=== PATIENT | male | born 1955 | race Caucasian/White ===

== ENCOUNTER 2022-09-15 16:51 | Inpatient (IN) | payer MEDICARE, OTHER, SELFPAY ==
[2022-09-15] VITALS (22 sets, daily range): BP systolic 103–136; BP diastolic 25–77; PULSE 59–84; RESP 13–22; TEMP 36.6–38.2; O2SAT 90–98; BMI 24.9
--- NOTE | ~2022-09-15 | CT_ITS ---
EXAMINATION: CT brain wo con DATE: 09/15/2022 21:48 INDICATION: Altered mental state TECHNIQUE: Computed tomography (CT) of the head was performed without intravenous contrast. The mA wa s adjusted according to patient size. Iterative reconstruction technique was employed. Exam dose: 60 5.33 mGy-cm total exam DLP. COMPARISON: None FINDINGS: Abnormal asymmetric diminished attenuation of the right parietal, temporal and occipital ar eas within the right middle cerebral artery distribution consistent with right middle cerebral artery recent/subacute infarct . No cerebral hemorrhage or other intracranial bleeding is noted. No subarachnoid or intraventricular blood or subdural or epidural hematoma is detected. There is nonspecific diminished attenuation of the cerebral white matter, likely due to chronic small vessel ischemic changes. Prominent bilateral carotid siphon internal carotid artery calcifications a nd some vertebral basilar artery calcification are noted. No intracranial mass lesion. No midline shift or mass effect effect rather than some effacement of th e cortical sulci in the distribution of the right middle cerebral artery territory infarct. Moderate central and cortical cerebral atrophy, mild cerebellar atrophy. Prominent cisterna magna. No fracture or bone destruction of the cranial vault. Included paranasal sinuses and mastoid air cell s are unremarkable. IMPRESSION: Recent or subacute right middle cerebral artery territory infarct Reviewed, dictated and finalized at [facility]. Reviewed, dictated and finalized at location A.
--- NOTE | ~2022-09-15 | XR_ITS ---
EXAMINATION: XR chest 1V portable Exam Date/Time: 09/15/2022 17:55 CDT HISTORY: SOB PAIN DISCOMFORT RECENT CVA WITH RT SIDE WEAKNESS Comparison: None available. RESULT: Lines, tubes, and devices: An electronic device projects over the left upper chest and obscures some anatomy. Lungs and pleura: Low volumes with crowding. Streaky bilateral lower lung opacities, likely scar/ate lectasis. Cardiomediastinal silhouette: Stable. Other: No acute osseous or upper abdominal finding. IMPRESSION: No acute cardiopulmonary process. Reviewed, dictated and finalized at location K.
--- NOTE | 2022-09-15 16:59 | ECG_ITS ---
Measurements Intervals [place] Rate: 82 P: 50 OR: 166 QRS: -1 QRSD: 88 T: 6 QT: 339 QTc: 398 Interpretive Statements SINUS RHYTHM POSSIBLE RIGHT VENTRICULAR CONDUCTION DELAY [RSR (QR) IN V1/V2] BORDERLINE ECG NO PREVIOUS ECG AVAILABLE FOR COMPARISON Electronically Signed On 09-16-2022 13:37:16 CDT by Nicholas Whitten M.D.
[2022-09-15 17:24] LABS: Basophils Absolute Auto 0.1 K/mm3 (0.0-0.1); Basophils Percent Auto 0.6 % (0.2-1.2); Hematocrit 47.1 % (42.0-52.0); Hemoglobin 15.2 g/dL (14.0-18.0); Immature Granulocyte Absolute 0.05 K/mm3 (0.00-0.031); Immature Granulocyte Percent A 0.5 % (0-0.5); Lymphocytes Absolute Auto 0.43 K/mm3 (0.9-3.2); Mean Corpuscular HGB Conc 32.3 g/dl (32-36); Mean Corpuscular Hemoglobin 29.2 pg (26-34); Mean Corpuscular Volume 90.6 fl (80-100); Mean Platelet Volume 9.6 fl (7.4-10.4); Monocytes Absolute Auto 0.5 K/mm3 (0.1-0.6); Monocytes Percent Auto 4.8 % (2.6-8.5); Neutrophils Absolute Auto 9.8 K/mm3 (1.3-6.7); Neutrophils Percent Auto 90.1 % (45.5-73.1); Platelet Count Result 286 k/mm3 (150-375); White Blood Count 10.8 K/mm3 (4.5-10.0)
[2022-09-15 17:36] LABS: INR 1.4; Lactic Acid Reflex 1.4 mmol/L (0.7-2.0); Prothrombin Time 16.7 Seconds (11.1-14.7)
[2022-09-15 17:37] LABS: Partial Thromboplastin Time 35.2 SECONDS (22.3-36.8)
--- NOTE | 2022-09-15 17:43 | ED.RECABL ---
HPI - Recheck/Abnormal Lab/Rx General Chief Complaint: Recheck/Abnormal Lab/Rx <Diana Reece PA-C - Last Filed: 09/15/22 22:25> Stated Complaint: increased WBC <Diana Reece PA-C - Last Filed: 09/15/22 22:25> Time Seen by Provider: 09/15/22 17:05 <Diana Reece PA-C - Last Filed: 09/15/22 22:25> History of Present Illness HPI narrative: 67-year-old male with a history of CVA in August 2022 reports with his from [facility] for evaluation of elevated WBC and positive blood cultures. Pt has been living at [facility] since his stroke. Pt;s states the patient began acting lethargic yesterday. Patient is reporting diarrhea yesterday and chills, otherwise denies other sources of infection. Denies chest pain, shortness of breath, cough or congestion, abdominal pain, urinary complaints, skin ulcerations or lesions, CP, SOB. Patient's residual stroke deficits include weakness to the left side of his body and face, with intermittent vision changes. He is able to eat and drink without a feeding tube, however has decreased PO intake recently per his . <Diana Reece PA-C - Last Filed: 09/15/22 22:25> Related Data Home Medications: Home Medications Medication Instructions Recorded Confirmed allopurinol 100 mg tablet 100 mg PO DAILY 09/15/22 09/15/22 aspirin 325 mg tablet,delayed 325 mg PO DAILY 09/15/22 09/15/22 release bisacodyl 10 mg rectal suppository 10 mg RECTAL DAILY PRN irritation 09/15/22 09/15/22 chlorhexidine gluconate 0.12 % 15 ml buccal BID 09/15/22 09/15/22 mouthwash docusate sodium 100 mg tablet 100 mg PO BID 09/15/22 09/15/22 fluoxetine 20 mg capsule 20 mg PO DAILY 09/15/22 09/15/22 hydrocortisone 1 % topical cream 1 applic topical BID PRN Itching 09/15/22 09/15/22 hydroxyzine HCl 25 mg tablet 25 mg PO QID PRN Itching 09/15/22 09/15/22 nystatin 100,000 unit/gram topical 1 applic topical BID irritation 09/15/22 09/15/22 powder sennosides 8.6 mg tablet 8.6 mg PO BID 09/15/22 09/15/22 <Diana Reece PA-C - Last Filed: 09/15/22 22:25> Allergies/Adverse Reactions: Allergies Allergy/AdvReac Type Severity Reaction Status Date / Time No Known Allergies Allergy Unverified 09/15/22 22:48 <Diana Reece PA-C - Last Filed: 09/15/22 22:25> Review of Systems Review of Systems: CONSTITUTIONAL: Denies fever, chills EYES: Denies visual changes, redness, or discharge. ENT: Denies rhinorrhea, congestion, sore throat, or otalgia. CARDIOVASCULAR: Denies chest pain, palpitations, or edema. RESPIRATORY: Denies cough or dyspnea. GASTROINTESTINAL: Denies abdominal pain, nausea, vomiting. GENITOURINARY: Denies dysuria or hematuria. SKIN: Denies rash or itching. MUSCULOSKELETAL: Denies back pain, joint pain, or myalgia. NEUROLOGIC: Denies headache, numbness, dizziness, or weakness. PSYCHIATRIC: Denies anxiety or depression. <LEISA Zurita Last Filed: 09/15/22 22:25> COUNTS INCLUDE 234 BEDS AT THE [facility] Family History Family History: Family History Other Unknown family medical history <Diana Reece PA-C - Last Filed: 09/15/22 22:25> Social History Social History: Social History Smoking status: Never smoker Alcohol intake: never Substance use: never Substance use type: does not use Lack of Transportation: No Lack of Food: Never True Current Housing: I Have Housing Concerned About Future Housing: No Difficulty Paying Gas/Electric Bills: No Difficulty Paying for Meds: No Currently Unemployed: No Education: Trade/Vocational Certificate Difficulty w/ Childcare or Family Care: No Spiritual care concerns: No <LEISA Zurita Last Filed: 09/15/22 22:25> Exam Narrative: GENERAL: Pt resting in exam bed, well appearing. In no acute distress. HEAD: Normocephalic, atraumatic. EYES: PERRLA and
[2022-09-15 17:57] LABS: Alanine Aminotransferase 47 U/L (6-50); Albumin Level 4.1 g/dL (3.5-5.1); Alkaline Phosphatase 237 U/L (38-126); Anion Gap 7 mmol/L (8-16); Aspartate Amino Transferase 57 U/L (17-59); Bilirubin,Total 1.9 mg/dL (0.2-1.3); Blood Urea Nitrogen 23 mg/dL (9-20); CRP 21.5 mg/dL (<1.0); Calcium 10.6 mg/dL (8.4-10.2); Carbon Dioxide 29 mmol/L (22-30); Chloride 101 mmol/L (98-107); Estimated CRCL calculation 66 ml/min; Estimated Glomerular Filt Rate 60; Glucose 136 mg/dL (65-110); Potassium 4.5 mmol/L (3.4-5.0); Sodium 137 mmol/L (137-145)
[2022-09-15] MEDS: SODIUM CHLORIDE 0.9% IV 3,100 ML/1,000 ML BAG 322.26 ML IV CONT (17:59)
[2022-09-15] MEDS: PIPERACILLN/TAZ 3.375GM/NS50ML 3.375 GM/50 ML BAG IVPB (18:03)
[2022-09-15 18:12] LABS: Lipase 298 U/L (23-300)
[2022-09-15 20:04] LABS: Appearance Urine Cloudy (Clear); Bacteria Urine None Seen /hpf; Bilirubin Urine 1+ (Negative); Blood Urine 3+ (Negative); Color Urine Dark Yellow (Yellow); Glucose Urine UA Negative (Negative); Ketones Urine Trace mg/dL (Negative); Leukocyte Esterase Ur 2+ LEU/UL (Negative); Need Manual Microscopic Reviewed; Nitrate Urine Negative (Negative); Protein Urine 2+ mg/dL (Negative); RBC Urine 51-100 /hpf (0-2); Specific Grav Ur 1.026 (1.001-1.035); Squamous Epithelial Cell Urine None seen /hpf (Few); WBC Urine 51-100 /hpf; pH Urine 5.5 (5.0-9.0)
[2022-09-15 20:09] LABS: Add Urine Microscopic? YES
--- NOTE | 2022-09-15 20:44 | PM.IMHP ---
H&P: HPI History of Present Illness Date/Time: 09/15/22 20:44 Chief Complaint: Altered mental status Narrative: This is a 67-year-old male with past medical history significant for recent stroke with left-sided hemiparesis he was discharged from [facility] to [facility] was sent for evaluation due to concerns for altered mental status with obtundation, a CBC showed leukocytosis. In emergency room preliminary workup was significant for urinalysis with numerous WBCs present. Most of the history has been obtained upon reviewing medical records discussion with emergency room doctor and who is sitting at bedside. Chest x-ray was reported as; RESULT: Lines, tubes, and devices:? An electronic device projects over the left upper chest and obscures some anatomy. Lungs and pleura:? Low volumes with crowding. Streaky bilateral lower lung opacities, likely scar/atelectasis. Cardiomediastinal silhouette:? Stable. Other:? No acute osseous or upper abdominal finding. ? IMPRESSION: No acute cardiopulmonary process. Review of Systems Review of Systems: ROS unobtainable: Yes unobtainable due to mental status (Lethargy, obtundation) [facility] Family History Family History Other Unknown family medical history Social History Social History Smoking status: Never smoker Alcohol intake: never Substance use: never Substance use type: does not use Lack of Transportation: No Lack of Food: Never True Current Housing: I Have Housing Concerned About Future Housing: No Difficulty Paying Gas/Electric Bills: No Difficulty Paying for Meds: No Currently Unemployed: No Education: Trade/Vocational Certificate Difficulty w/ Childcare or Family Care: No Spiritual care concerns: No Meds Home Medications and Allergies Home Medications Medication Instructions Recorded Confirmed Type allopurinol 100 mg tablet 100 mg PO DAILY 09/15/22 09/15/22 History aspirin 325 mg tablet,delayed 325 mg PO DAILY 09/15/22 09/15/22 History release bisacodyl 10 mg rectal suppository 10 mg RECTAL DAILY PRN irritation 09/15/22 09/15/22 History chlorhexidine gluconate 0.12 % 15 ml buccal BID 09/15/22 09/15/22 History mouthwash docusate sodium 100 mg tablet 100 mg PO BID 09/15/22 09/15/22 History fluoxetine 20 mg capsule 20 mg PO DAILY 09/15/22 09/15/22 History hydrocortisone 1 % topical cream 1 applic topical BID PRN Itching 09/15/22 09/15/22 History hydroxyzine HCl 25 mg tablet 25 mg PO QID PRN Itching 09/15/22 09/15/22 History nystatin 100,000 unit/gram topical 1 applic topical BID irritation 09/15/22 09/15/22 History powder sennosides 8.6 mg tablet 8.6 mg PO BID 09/15/22 09/15/22 History Allergies Allergy/AdvReac Type Severity Reaction Status Date / Time No Known Allergies Allergy Unverified 09/15/22 22:48 Vital Signs Vital Signs - 24 hr 09/15/22 16:51 09/15/22 17:00 09/15/22 18:29 Temperature 100.7 F H Pulse Rate 84 80 77 Respiratory Rate 18 18 18 Blood Pressure 136/71 116/77 117/70 Pulse Oximetry 98 98 93 Oxygen Delivery Room Air 09/15/22 18:30 09/15/22 19:41 09/15/22 18:49 Temperature Pulse Rate 78 71 74 Respiratory Rate 19 22 H 15 Blood Pressure 116/77 117/70 Pulse Oximetry 90 96 Oxygen Delivery 09/15/22 19:00 09/15/22 19:02 09/15/22 19:16 Temperature Pulse Rate 73 74 67 Respiratory Rate 14 17 16 Blood Pressure 115/25 L Pulse Oximetry Oxygen Delivery 09/15/22 19:32 09/15/22 19:33 09/15/22 19:45 Temperature Pulse Rate 75 73 70 Respiratory Rate 13 16 16 Blood Pressure 117/70 Pulse Oximetry 93 94 Oxygen Delivery 09/15/22 19:47 09/15/22 20:00 09/15/22 20:02 Temperature Pulse Rate 68 76 77 Respiratory Rate 16 17 17 Blood Pressure 115/65 103/60 Pulse Oximetry Oxygen Del
[2022-09-15 22:14] LABS: Influenza A QL RT-PCR Negative (Negative); Influenza B QL RT-PCR Negative (Negative); SARS-CoV-2 RNA PCR Negative
--- NOTE | 2022-09-15 22:38 | ADMGEN ---
This patient, Sadi Young, was admitted to Medical Room 349-01. Patient/family oriented to hospital policies and general routines including ID bracelet, bed and alarms, visiting hours, pain management, procedures, bathroom and other care routines, personal items, smoking policy, room service/diet, and visiting hours. Information on how to activate the Rapid Response Team has been discussed. Patient/Family are encouraged to report perceived risks to care and to ask questions if they do not understand what they are told or what they should do.
[2022-09-16] MEDS: SODIUM CHLORIDE 0.9% IV 1,000 ML 999 ML IV CONT (00:33)
[2022-09-16] MEDS: SODIUM CHLORIDE 0.9% IV 1,000 ML 85 ML IV CONT ×3 (01:30→20:24)
[2022-09-16] MEDS: PIPERACILLN/TAZ 3.375GM/NS50ML 3.375 GM/50 ML BAG IVPB ×4 (05:09→18:44)
[2022-09-16 05:15] LABS: Estimated CRCL calculation 77 ml/min; Estimated Glomerular Filt Rate > 60
[2022-09-16 06:00] VITALS: BP 162/66; PULSE 69; RESP 20; TEMP 36.6; O2SAT 98
[2022-09-16 08:00] VITALS: BP 120/80; PULSE 70
[2022-09-16] MEDS: FLUoxetine HCL 20 MG CAPSULE PO (10:38)
[2022-09-16] MEDS: ASPIRIN 325 MG ENTERIC TABLET PO (10:38)
[2022-09-16] MEDS: allopurinoL 100 MG TABLET PO (10:38)
[2022-09-16] MEDS: SENNOSIDES 8.6 MG TABLET PO (10:38)
[2022-09-16] MEDS: TOLNAFTATE 1% POWDER 45 GM BTL 1 APPLIC TOPICAL ×2 (10:38→20:25)
[2022-09-16] MEDS: CHLORHEXIDINE GLUCONATE 0.12% ORAL RINSE 473 ML BTL (*BKC) 15 ML SWISH/SPIT ×2 (10:40→18:44)
--- NOTE | 2022-09-16 11:47 | PM.IMPN ---
Progress Note: A&P Assessment and Plan (1) Sepsis: Qualifiers: Sepsis acute organ dysfunction status: without acute organ dysfunction Sepsis type: sepsis due to unspecified organism Qualified Code(s): A41.9 - Sepsis, unspecified organism Code(s): A41.9 - Sepsis, unspecified organism Status: Acute Assessment and Plan: As evidenced by altered mental status with obtundation lethargy and confusion Elevated bilirubin Started on broad-spectrum antibiotics Early goal-directed therapy ongoing (2) Urinary tract infection: Qualifiers: Hematuria presence: with hematuria Urinary tract infection type: acute cystitis Qualified Code(s): N30.01 - Acute cystitis with hematuria Code(s): N39.0 - Urinary tract infection, site not specified Status: Acute Assessment and Plan: Await cultures (3) Acute delirium: Code(s): R41.0 - Disorientation, unspecified Status: Acute Assessment and Plan: Likely secondary to sepsis (4) Stroke: Code(s): I63.9 - Cerebral infarction, unspecified Status: Acute Assessment and Plan: Unchanged (5) Dysphagia: Code(s): R13.10 - Dysphagia, unspecified Status: Acute Assessment and Plan: NPO Speech eval when clinically able Currently on IV fluids (6) Left hemiparesis: Code(s): G81.94 - Hemiplegia, unspecified affecting left nondominant side Status: Acute Assessment and Plan: Fall precautions Round the clock turning schedule Subjective Date/time seen: 09/16/22 11:47 No complaints Exam Narrative: Patient is laying in a stretcher Const: General: comfortable, no acute distress, well developed, ill appearing, lethargic, patient obtunded and average body habitus Nutritional Appearance: average body habitus Orientation/consciousness: patient oriented x3, patient obtunded and lethargic HENMT: Head: normal to inspection, normocephalic and atraumatic Ears: hearing grossly normal bilaterally Face/Nose/Sinus: normal facial exam Face and sinus: normal facial exam Eyes: General: appearance normal, both eyes and all related structures Pupils: Equal, round and reactive pupils present EOM: EOMs intact bilaterally Neck: Neck: full ROM, no lymphadenopathy and no JVD Thyroid: thyroid normal Lymphatic: no lymphadenopathy noted Resp: Effort & Inspection: normal respiratory effort and able to speak in complete sentences Auscultation: clear to auscultation bilaterally Cardio: Jugular venous distension: no JVD Rate: regular rate Rhythm: regular rhythm Heart sounds: S1 normal heart sound present and S2 normal heart sound present : General: Yes deferred Skin: Rashes: no rashes Wounds: no wounds Neuro: General: patient oriented x3, CN's II-XI intact bilaterally, patient obtunded and Unable to assess gait Cranial nerves: Yes CN's II-XII intact bilaterally and Yes Equal, round and reactive pupils present Cognition (Neuro): abnormal cognition (Lethargy, obtundation) Speech: normal speech Gait exam (Neuro): Unable to assess gait Motor exam (neuro): Other motor observations present (Right upper extremity muscle strength 0/5 right lower extremity 1/5) Extrem: General: normal to inspection, full ROM, no joint enlargement and no pedal edema Objective Data Vital Signs Vital Signs: Vital Signs - 24 hr 09/15/22 16:51 09/15/22 17:00 09/15/22 18:29 Temperature 100.7 F H Pulse Rate 84 80 77 Respiratory Rate 18 18 18 Blood Pressure 136/71 116/77 117/70 Pulse Oximetry 98 98 93 Oxygen Delivery Room Air 09/15/22 18:30 09/15/22 19:41 09/15/22 18:49 Temperature Pulse Rate 78 71 74 Respiratory Rate 19 22 H 15 Blood Pressure 116/77 117/70 Pulse Oximetry 90 96 Oxygen Delivery 09/15/22 19:00 09/15/22 19:02 09/15/22 19:16 Temperature Pulse Rate 73 74 67 Respiratory Rate 14 17 16 Blood Pressure 115/25 L Pulse Oximetry Oxygen Delivery 09/15/22
[2022-09-16 14:00] VITALS: BP 140/72; PULSE 51; RESP 18; TEMP 36.9; O2SAT 98
[2022-09-16 14:54] VITALS: BMI 10.0
--- NOTE | 2022-09-16 16:07 | PC.NURSE ---
During morning medication pass feature writer attempted to give medications to patient whole. Tried a small pill and patient could not swallow it whole. Swage Toolsetter swiped pill out of patients mouth and crushed all of the morning medications. Swage Toolsetter put those into pudding and gave patient a small bite. Patient spit out all of crushed medications. Swage Toolsetter notified hospitalist Lion and put in speech therapy bedside swallow evaluation.
[2022-09-16 21:20] VITALS: BP 136/72; PULSE 51; RESP 18; TEMP 36.9; O2SAT 94
[2022-09-17] MEDS: PIPERACILLN/TAZ 3.375GM/NS50ML 3.375 GM/50 ML BAG IVPB ×3 (00:17→17:29)
[2022-09-17 05:55] LABS: Anion Gap 5 mmol/L (8-16); Blood Urea Nitrogen 14 mg/dL (9-20); Calcium 9.5 mg/dL (8.4-10.2); Carbon Dioxide 26 mmol/L (22-30); Chloride 104 mmol/L (98-107); Estimated CRCL calculation 77 ml/min; Estimated Glomerular Filt Rate > 60; Glucose 108 mg/dL (65-110); Potassium 3.3 mmol/L (3.4-5.0); Sodium 135 mmol/L (137-145)
[2022-09-17 06:00] VITALS: BP 129/65; PULSE 47; RESP 20; TEMP 36.7; O2SAT 96
[2022-09-17 06:13] LABS: Vancomycin Trough 8.9 ug/mL (10.0-20.0)
[2022-09-17 08:28] LABS: Basophils Absolute Auto 0.1 K/mm3 (0.0-0.1); Basophils Percent Auto 0.8 % (0.2-1.2); Eosinophils Absolute Auto 0.2 K/mm3 (0-0.3); Eosinophils Percent Auto 2.9 % (0-4.4); Hematocrit 40.4 % (42.0-52.0); Hemoglobin 12.9 g/dL (14.0-18.0); Immature Granulocyte Absolute 0.04 K/mm3 (0.00-0.031); Immature Granulocyte Percent A 0.6 % (0-0.5); Lymphocytes Absolute Auto 1.15 K/mm3 (0.9-3.2); Lymphocytes Percent Auto 18.2 % (18.3-44.2); Mean Corpuscular HGB Conc 31.9 g/dl (32-36); Mean Corpuscular Hemoglobin 29.3 pg (26-34); Mean Corpuscular Volume 91.8 fl (80-100); Mean Platelet Volume 9.8 fl (7.4-10.4); Monocytes Absolute Auto 0.8 K/mm3 (0.1-0.6); Monocytes Percent Auto 13.2 % (2.6-8.5); Neutrophils Absolute Auto 4.1 K/mm3 (1.3-6.7); Neutrophils Percent Auto 64.3 % (45.5-73.1); Platelet Count Result 245 k/mm3 (150-375); Red Cell Distribution Width 12.8 % (11.5-14.5); White Blood Count 6.3 K/mm3 (4.5-10.0)
--- NOTE | 2022-09-17 10:26 | PCSTNOTE ---
Please refer to the Bedside Swallow Evaluation in the EMR. Please note, silent aspiration cannot be ruled out at bedside.
[2022-09-17] MEDS: POTASSIUM CHLORIDE INJ 40 MEQ in SODIUM CHLORIDE 0.9% IV 500 ML 130 MEQ IVPB (11:20)
[2022-09-17] MEDS: CHLORHEXIDINE GLUCONATE 0.12% ORAL RINSE 473 ML BTL (*BKC) 15 ML SWISH/SPIT ×2 (11:22→17:27)
[2022-09-17] MEDS: TOLNAFTATE 1% POWDER 45 GM BTL 1 APPLIC TOPICAL (11:23)
[2022-09-17 13:22] VITALS: BMI 10.0
[2022-09-17 15:42] VITALS: BP 137/65; PULSE 63; RESP 16; TEMP 36.5; O2SAT 97
[2022-09-17 19:34] VITALS: BP 156/68; PULSE 56; RESP 18; TEMP 36.4; O2SAT 97
--- NOTE | 2022-10-08 09:51 | PM.DS ---
DS: Admitting Diagnosis Discharge Date 09/17/22 Admitting Diagnosis uti, ams DS: Discharge Diagnosis Discharge Diagnosis (1) Sepsis: Qualifiers: Sepsis acute organ dysfunction status: without acute organ dysfunction Sepsis type: sepsis due to unspecified organism Qualified Code(s): A41.9 - Sepsis, unspecified organism Code(s): A41.9 - Sepsis, unspecified organism Status: Acute Assessment and Plan: As evidenced by altered mental status with obtundation lethargy and confusion Elevated bilirubin Started on broad-spectrum antibiotics Early goal-directed therapy ongoing (2) Urinary tract infection: Qualifiers: Hematuria presence: with hematuria Urinary tract infection type: acute cystitis Qualified Code(s): N30.01 - Acute cystitis with hematuria Code(s): N39.0 - Urinary tract infection, site not specified Status: Acute Assessment and Plan: Await cultures (3) Acute delirium: Code(s): R41.0 - Disorientation, unspecified Status: Acute Assessment and Plan: Likely secondary to sepsis (4) Stroke: Code(s): I63.9 - Cerebral infarction, unspecified Status: Acute Assessment and Plan: Unchanged (5) Dysphagia: Code(s): R13.10 - Dysphagia, unspecified Status: Acute Assessment and Plan: NPO Speech eval when clinically able Currently on IV fluids (6) Left hemiparesis: Code(s): G81.94 - Hemiplegia, unspecified affecting left nondominant side Status: Acute Assessment and Plan: Fall precautions Round the clock turning schedule DS: Summary Hospital Course Hospital Course: sepis on admission - uti noted, started on abx and did well discahrge on oral abx now back to baseline Time Spent with Patient Time attestation: Total time spent providing and/or coordinating discharge services: Exam Narrative: Patient is laying in a stretcher Const: General: comfortable, no acute distress, well developed, ill appearing, lethargic, patient obtunded and average body habitus Nutritional Appearance: average body habitus Orientation/consciousness: patient oriented x3, patient obtunded and lethargic HENMT: Head: normal to inspection, normocephalic and atraumatic Ears: hearing grossly normal bilaterally Face/Nose/Sinus: normal facial exam Face and sinus: normal facial exam Eyes: General: appearance normal, both eyes and all related structures Pupils: Equal, round and reactive pupils present EOM: EOMs intact bilaterally Neck: Neck: full ROM, no lymphadenopathy and no JVD Thyroid: thyroid normal Lymphatic: no lymphadenopathy noted Resp: Effort & Inspection: normal respiratory effort and able to speak in complete sentences Auscultation: clear to auscultation bilaterally Cardio: Jugular venous distension: no JVD Rate: regular rate Rhythm: regular rhythm Heart sounds: S1 normal heart sound present and S2 normal heart sound present : General: Yes deferred Skin: Rashes: no rashes Wounds: no wounds Neuro: General: patient oriented x3, CN's II-XI intact bilaterally, patient obtunded and Unable to assess gait Cranial nerves: Yes CN's II-XII intact bilaterally and Yes Equal, round and reactive pupils present Cognition (Neuro): abnormal cognition (Lethargy, obtundation) Speech: normal speech Gait exam (Neuro): Unable to assess gait Motor exam (neuro): Other motor observations present (Right upper extremity muscle strength 0/5 right lower extremity 1/5) Extrem: General: normal to inspection, full ROM, no joint enlargement and no pedal edema Discharge Plan Discharge Attending physician on discharge: Sadi Seymour Consulting providers: Diana Reece; Nicholas Whitten; Alejandro Portillo; Ayan Camp Discharging Clinician: Sadi Seymour Patient Disposition: Inpatient Rehab Facility Activity: no preference Diet: as tolerated Patient Instructions: Antibiotic Form
== END 2022-09-17 23:24 | DRG 872 ==
LOC: ANHED 20:49 → ANH3MED 22:11
PROVIDERS: Emergency Medicine; Admitting Provider Internal Medicine; Emergency Provider Physician Assistant; PCP Internal Medicine; Visit Provider Chiropractor
DX: A41.9 Sepsis, unspecified organism (principal); N39.0 Urinary tract infection, site not specified; I69.354 Hemiplegia and hemiparesis following cerebral infarction affecting left non-dominant side; I69.392 Facial weakness following cerebral infarction; I69.398 Other sequelae of cerebral infarction; R41.0 Disorientation, unspecified; R13.10 Dysphagia, unspecified; Z20.822 Contact with and (suspected) exposure to COVID-19; Z79.82 Long term (current) use of aspirin
CPT/HCPCS: 36415; 70450; 71045; 80048; 80053; 80202; 81001; 82565; 83605; 83690; 85025; 85610; 85730; 86140; 87040; 87086; 87636; 92522; 92610; 93005; 96365; 96366; 96367; 96368; 97110; 97112; 97162; 97165; 97530; 99285; A4248; A9270; J0131; J2543; J3370; J3480; J7030; J7040

== ENCOUNTER 2023-04-26 15:47 | Outpatient (CLI) | payer MEDICARE, OTHER, SELFPAY ==
--- NOTE | ~2023-04-26 | XR_ITS ---
EXAMINATION: XR humerus LT DATE: 04/26/2023 16:23 INDICATION: Left humeral fracture TECHNIQUE: Overlapping proximal and distal AP and lateral views of the left humerus were obtained. COMPARISON: None FINDINGS: Minimal displacement of an oblique fracture of the proximal metaphyseal region of the left humerus wh ich remains in near-anatomic alignment. There is a small amount of not yet solidly bridging callus fo rmation about the posterior, lateral and medial margins of the fracture. No other fractures identifie d. Coil caudal subluxation of the humeral head with respect to the glenoid with associated mild widen ing of the joint space and concave contour to the skin surface lateral to the acromion. IMPRESSION: 1. Healing minimally displaced fracture of the proximal metaphyseal region of the left humerus. Reviewed, dictated and finalized at location A. CH CLEANER IMPRESSION: 1. Healing minimally displaced fracture of the proximal metaphyseal region of t he left humerus.
== END 2023-04-26 15:48 | disposition home or self-care (01) ==
PROVIDERS: PCP Family Medicine; Visit Provider Family Medicine
DX: S42.392A Other fracture of shaft of left humerus, initial encounter for closed fracture (principal); X58.XXXA Exposure to other specified factors, initial encounter
CPT/HCPCS: 73060

== ENCOUNTER 2023-05-06 13:34 | Outpatient (CLI) | payer MEDICARE, OTHER, SELFPAY ==
--- NOTE | ~2023-05-06 | CT_ITS ---
EXAMINATION: CT brain wo con DATE: 05/06/2023 13:58 INDICATION: Nontraumatic intracranial hemorrhage. TECHNIQUE: Computed tomography (CT) of the head was performed without intravenous contrast. The mA wa s adjusted according to patient size. Iterative reconstruction technique was employed. The dose-lengt h product was 756.67 mGy-cm. COMPARISON: Head CT 09/15/2022 FINDINGS: There is a large distribution of old infarct involving the right frontal, temporal, parieta l, and occipital lobes, right insula, and right basal ganglia in the expected distribution of right m iddle cerebral artery. There is no intracranial hemorrhage, acute infarction, or abnormal intracrania l mass lesion. There is ex vacuo dilatation of temporal horn of right lateral ventricle. The orbits a re normal. The paranasal sinuses are clear. The mastoid air cells are normal. The orbits are normal. IMPRESSION: 1. Large old infarct in the expected distribution of right middle cerebral artery. Reviewed, dictated and finalized at location A. SPORTATION ASSISTANT IMPRESSION: 1. Large old infarct in the expected distribution of right middle cerebral yoko ry.
== END 2023-05-06 13:35 | disposition home or self-care (01) ==
PROVIDERS: PCP Family Medicine; Visit Provider Family Medicine
DX: I62.9 Nontraumatic intracranial hemorrhage, unspecified (principal)
CPT/HCPCS: 70450

== ENCOUNTER 2023-06-12 14:43 | Outpatient (CLI) | payer MEDICARE, OTHER, SELFPAY ==
--- NOTE | ~2023-06-12 | XR_ITS ---
EXAMINATION: XR humerus LT DATE: 06/12/2023 15:06 INDICATION: Fracture of shaft of left humerus. Follow-up. TECHNIQUE: 2 views of left humerus on 4 radiographs were obtained. COMPARISON: Left humerus radiographs 04/26/2023 FINDINGS: There is an oblique fracture of surgical neck of proximal left humerus. The distal fracture fragment demonstrates 2 mm lateral displacement and 3 mm posterior displacement. Callus formation is noted. There is mild osteoarthritis of glenohumeral joint and acromioclavicular joint. IMPRESSION: 1. Healing one-part fracture of proximal left humerus. 2. Mild polyarticular osteoarthritis. Reviewed, dictated and finalized at location E. TING ENGINEER
== END 2023-06-12 14:44 | disposition home or self-care (01) ==
PROVIDERS: PCP Family Medicine; Visit Provider Orthopaedic Surgery
DX: S42.302D Unspecified fracture of shaft of humerus, left arm, subsequent encounter for fracture with routine healing (principal); X58.XXXD Exposure to other specified factors, subsequent encounter
CPT/HCPCS: 73060

== ENCOUNTER 2023-11-02 10:20 | Emergency (ER) | payer MEDICARE, OTHER, SELFPAY ==
[2023-11-02 10:29] VITALS: BP 128/67; PULSE 67; RESP 16; TEMP 37.1; O2SAT 99
--- NOTE | 2023-11-02 10:31 | ED.MALEGU ---
HPI - Male Genitourinary General Chief complaint: Urogenital-Male Stated complaint: Urinary Problem Time Seen by Provider: 11/02/23 10:41 Source: patient, RN notes reviewed and old records reviewed Mode of arrival: wheelchair Limitations: no limitations History of Present Illness HPI Narrative: 68 year old male presents to express care accompanied by with complaints of having an order for a urine specimen to be done but not aware lab closed today. They would like to go ahead and be seen and have urine checked for infection. He is resident at [facility] and for the past week has had dark cloudy urine with history of past urinary tract infections and urinary sepsis. Patient had stroke about a year ago and has left sided weakness and has been receiving therapy for residual weakness from stroke. Patient reports that he has no urinary burning or pain with urination. MD Complaint: other (dark cloudy urine history of UTI's) Onset (ago): week(s) (1) Severity: mild Associated symptoms: Reports other (cloudy dark urine) Related Data Home Medications Medication Instructions Recorded Confirmed sennosides 8.6 mg tablet 8.6 mg PO BID 09/15/22 07/16/23 amoxicillin 500 mg capsule mg 11/02/23 Allergies Allergy/AdvReac Type Severity Reaction Status Date / Time No Known Allergies Allergy Verified 11/02/23 10:27 Review of Systems Review of Systems: CONSTITUTIONAL: Denies fever, chills, or sweats. CARDIOVASCULAR: Denies chest pain, palpitations, or edema. RESPIRATORY: Denies cough or dyspnea. GASTROINTESTINAL: Denies abdominal pain, nausea, vomiting, or diarrhea. GENITOURINARY: Reports no dysuria, frequency, urgency. Denies flank pain or hematuria. reports that urine is dark and cloudy SKIN: Denies rash or itching. MUSCULOSKELETAL: Denies back pain or myalgia. 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) Intracranial hemorrhage Kidney stones Left humeral fracture Sepsis Stroke Urinary tract infection Surgical History Surgical History History of total right knee replacement Family History Family History Father Diabetes mellitus Hypertension Mother Hypertension Thyroid disorder Social History Social History Social History: Smoking status: Never smoker Second hand tobacco smoke exposure: No Alcohol intake: former Substance use: never Substance use type: does not use Do You Feel Safe in your Home?: Yes Lack of Transportation: No Lack of Food: Never True Current Housing: I Have Housing Concerned About Future Housing: No Difficulty Paying Gas/Electric Bills: No Difficulty Paying for Meds: No Currently Unemployed: No Education: Bachelor's Degree Difficulty w/ Childcare or Family Care: No Living arrangements: with family Occupation/Education: retired Gender identity (if verbalized by the patient): Male Sexual Orientation (if Verbalized by the Patient): Straight or Heterosexual Spiritual care concerns: No Comments At time of signature, agree with nursing past medical, surgical, social and family history. There is no relevant family history pertinent to the presenting complaint Exam Narrative: GENERAL: Well-appearing, well-nourished, and in no acute distress. HEAD: Normocephalic, atraumatic. NECK: Supple.no lymphadenopathy CHEST: Clear to auscultation. No respiratory distress.SAO2 99% on room air HEART: Regular rate and
--- NOTE | 2023-11-02 10:45 | PC.NURSE ---
in br to obtain ua spec., requested hat to get spec. and had been placed in toilet.
== END 2023-11-02 11:22 | disposition home or self-care (01) ==
PROVIDERS: Emergency Provider Registered Nurse; PCP Family Medicine
DX: N39.0 Urinary tract infection, site not specified (principal); F41.8 Other specified anxiety disorders
CPT/HCPCS: 81003; 87086; 99213; G0463

== ENCOUNTER 2023-11-16 10:11 | Outpatient (CLI) | payer MEDICARE, OTHER, SELFPAY ==
[2023-11-16 10:52] LABS: Appearance Urine Turbid (Clear); Bacteria Urine None Seen /hpf; Bilirubin Urine Negative (Negative); Blood Urine 3+ (Negative); Calcium Oxalate Crystals Urine Present /hpf; Color Urine Dark Yellow (Yellow); Glucose Urine UA Negative (Negative); Ketones Urine Trace mg/dL (Negative); Leukocyte Esterase Ur Trace LEU/UL (Negative); Nitrate Urine Negative (Negative); Protein Urine 1+ mg/dL (Negative); RBC Urine >100 /hpf (0-2); Specific Grav Ur 1.023 (1.001-1.035); Squamous Epithelial Cell Urine None Seen /hpf (Few); WBC Urine 0-5 /hpf (0-3); pH Urine 5.5 (5.0-9.0)
[2023-11-16 10:53] LABS: Add Urine Microscopic? YES
== END 2023-11-16 10:12 | disposition home or self-care (01) ==
PROVIDERS: PCP Family Medicine; Visit Provider Family Medicine
DX: R31.9 Hematuria, unspecified (principal)
CPT/HCPCS: 81001

== ENCOUNTER 2024-08-26 15:09 | Outpatient (CLI) | payer MEDICARE, OTHER, SELFPAY ==
[2024-08-26 15:31] LABS: Basophils Absolute Auto 0.1 K/mm3 (0.0-0.1); Basophils Percent Auto 0.9 % (0.2-1.2); Eosinophils Absolute Auto 0.2 K/mm3 (0-0.3); Eosinophils Percent Auto 2.6 % (0-4.4); Hematocrit 47.3 % (42.0-52.0); Immature Granulocyte Absolute 0.02 K/mm3 (0.00-0.031); Immature Granulocyte Percent A 0.3 % (0-0.5); Lymphocytes Absolute Auto 1.71 K/mm3 (0.9-3.2); Mean Corpuscular HGB Conc 31.7 g/dl (32-36); Mean Corpuscular Hemoglobin 28.3 pg (26-34); Mean Corpuscular Volume 89.2 fl (80-100); Mean Platelet Volume 9.1 fl (7.4-10.4); Monocytes Absolute Auto 0.5 K/mm3 (0.1-0.6); Monocytes Percent Auto 7.3 % (2.6-8.5); Neutrophils Absolute Auto 4.9 K/mm3 (1.3-6.7); Neutrophils Percent Auto 65.9 % (45.5-73.1); Platelet Count Result 286 k/mm3 (150-375); Red Cell Distribution Width 12.9 % (11.5-14.5); White Blood Count 7.4 K/mm3 (4.5-10.0)
[2024-08-26 15:46] LABS: Alanine Aminotransferase 33 U/L (6-50); Albumin Level 4.3 g/dL (3.5-5.1); Alkaline Phosphatase 132 U/L (38-126); Anion Gap 8 mmol/L (4-12); Aspartate Amino Transferase 37 U/L (17-59); Bilirubin,Total 1.1 mg/dL (0.2-1.3); Blood Urea Nitrogen 23 mg/dL (9-20); Calcium 10.3 mg/dL (8.4-10.2); Carbon Dioxide 30 mmol/L (22-30); Chloride 101 mmol/L (98-107); Estimated Glomerular Filt Rate 53; Glucose 91 mg/dL (65-110); Sodium 139 mmol/L (137-145)
--- OUTSIDE RECORDS SUMMARY | 2024-08-26 16:46 | XMS_ITS | Referral Summary ---
Author Organization CC [facility] [address] Address [address] [place] [address] Phone Care Team Providers Care Sales Representative Aircraft Name Role Phone Clarita Das MD Primary Care Provider Encounters Date Type Department Care Team Description 06/19/2024 7:51 PM RIG SITE ENGINEER - 06/20/2024 12:42 AM [facility] Emergency [facility] Emergency Department [address] [place] [id number] Bee Kelley MD Acute nonintractable headache, unspecified headache type (Primary Dx); Asymptomatic microscopic hematuria; Upper respiratory tract infection, unspecified type Discharge Disposition: Discharge to home or self care 06/19/2024 7:30 PM RIG SITE ENGINEER - 06/19/2024 11:59 PM [facility] Hospital Encounter [facility] Emergency, Room R Discharge Disposition: Discharge to home or self care from Last 3 Months Allergies No known active allergies Medications atorvastatin (LIPITOR) 40 mg tablet Take 1 tablet (40 mg total) by mouth daily 30 tablet 1 3 Active FLUoxetine (PROzac) 20 mg capsule Take 1 capsule (20 mg total) by mouth daily 30 capsule 1 3 Active docusate sodium (COLACE) 100 mg capsuleIndicati ons:constipatio n,Stool Softener Take 1 capsule (100 mg total) by mouth 2 (two) times a day May hold if having regular BM 60 capsule 1 3 Active Additional Information Patient taking differently:100 mg oral2 times daily PRN, May hold if having regular BM, Indications: constipation, Stool Softener, Reported on 06/17/2023 bisacodyL (DULCOLAX) 10 mg suppositoryIndi cations:constip ation Insert 1 suppository (10 mg total) into the rectum as needed Active lamoTRIgine XR (LaMICtal XR) 50 mg tablet extended release 24hr Take by mouth Act lynnette melatonin 3 mg tablet,disinteg rating Take by mouth as needed Active acetaminophen 500 mg capsuleIndicati ons:Pain Take 2 capsules (1,000 mg total) by mouth every 6 (six) hours 30 tablet 3 Active senna-docusate (PERICOLACE) 8.6-50 mgIndications:c onstipation Take 1 tablet by mouth 2 (two) times a day 3 Active aspirin 81 mg enteric coated tablet Take 1 tablet (81 mg total) by mouth daily 30 tablet 11 4 Active ALPRAZolam (XANAX) 0.25 mg tablet TAKE 1 TABLET BY MOUTH DAILY NEEDED FOR SLEEP 4 Active finasteride (PROSCAR) 5 mg tablet Take 1 tablet (5 mg total) by mouth daily 4 Active oxyBUTYnin XL (DITROPAN-XL) 5 mg 24 hr tablet Take 1 tablet (5 mg total) by mouth daily 4 Active Active Problems Problem Noted Date Diagnosed Date Fx humeral neck, left, closed, initial encounter 04/03/2023 Stenosis of right internal carotid artery 2022 Overview (12/03/2022): 60% residual stenosis after 08/25/22 angioplasty Pseudobulbar affect 12/03/2022 Hemiparesis affecting left s ligia as late effect of cerebrovascular accident 11/29/2022 Transaminitis 09/05/2022 COVID 09/05/2022 Constipation 09/05/2022 Acute stroke due to occlusio n of right middle cerebral artery 08/25/2022 Overview (12/03/2022): With tandem R ICA stenosis, which was angioplastied. Impacted cerumen of right ear 06/21/2022 Assessment & Plan (06/21/2022 2:58 PM RIG SITE ENGINEER): Ear fullness and decreased hearing over the last 1-2 weeks. Cerumen impaction noted on exam, L ear clear. R EAC flushed with large amount of cerumen removal. Hearing improved post flush. No signs of infection on exam. Primary osteoarthritis of right knee 04/04/2020 Overview (04/04/2020): Added automatically from request for surgery [id number] Assessment & Plan (06/01/2021 9:50 AM RIG SITE ENGINEER): Knee replacement has helped pain and discomfort is considerably. Verrucous keratosis 08/06/2018 Assessment & Plan (08/13/2018 11:40 AM RIG SITE ENGINEER): Posterior neck Bx site healing well, no complications or signs of infection reported or noted on exam Pathology discussed, benign reassurance given Follow up PRN Assessment & Plan (08/06/2018 10:57 AM RIG SITE ENGINEER): Right posterior neck Biopsy/ies done per procedure note. Wound care reviewed with patient. Follow-up per path. Medicare annual wellness visit, subsequent 05/23 Assessment & Plan (06/05/2022 10:28 AM RIG SITE ENGINEER): History and physical completed patient's health risk assessment health maintenance reviewed in addressed. Patient did advised get the updated shingles vaccine. Pneumonia vaccines completed prior to age 63. Assessment & Plan (06/01/2021 9:49 AM RIG SITE ENGINEER): History and physical completed patient's health risk assessment health maintenance reviewed in addressed. Patient pneumococcal vaccines at within the past 5 years. His last colonoscopy was March 2011 will schedule colonoscopy for 2021 COVID vaccines completed including booster. Assessment & Plan (05/30/2020 9:58 AM RIG SITE ENGINEER): History and physical completed patient's health risk assessment health maintenance reviewed in addressed. Lab will include BMP FLP had a PSA.. Patient was scheduled for knee replacement right-sided this is postponed May still no restrictions on proceeding with his knee replacement. Assessment & Plan (05/25/2019 1:17 PM RIG SITE ENGINEER): Patient's history and physical completed health risk assessment health maintenance all addressed. Patient completed his pneumonia vaccines over year ago shingles vaccines also been completed. Plans at this time check BMP fasting lipid profile. Assessment & Plan (05/24/2018 12:33 PM RIG SITE ENGINEER): Annual exam patient will get a cholesterol, hemoglobin HgbA1c his family is concerned about diabetes. And he in the remote past had elevated glucose 1 occasion. Patient's tetanus/Tdap is given. And he is given information on adult vaccines. Only vaccine he has not had best my understanding is the new shingles vaccine /Shingrex. He is advised to check with his insurance company in pharmacy regarding this vaccine. Assessment & Plan (05/23/2017 6:28 PM RIG SITE ENGINEER): History and physical completed no abnormalities noted laboratory studies include BMP CBC hepatitis C screening lipid panel PSA. Mallet finger 02/17/2015 Resolved Problems Problem Noted Date Diagnosed Date Resolved Date Cerebral edema 09/05/2022 09/05/2022 Leukocytosis 09/05/2022 09/05/2022 Pre-operative clearance 04/18/202005/11 Assessment & Plan (04/18/2020 12:30 PM RIG SITE ENGINEER): Patient is scheduled for right total knee replacement May.. No significant health problems is on no medications his exam today is benign vitals excellent only concern on discomfort is the right knee.. No restriction patient getting knee replacement/surgery riding his preop labs and EKG are within the acceptable range. Immunizations Immunization Administration Dates Next Due Influenza, Trivalent, High D ose, Split, Preservative Free, Intramuscular 02/17/2020 Pneumococcal Conjugate PCV 13 08/07/2017 Pneumococcal Conjugate, Unspecified 07/12/2018 Tdap 05/23/2018 Social History Tobacco Use Types Packs/Day Years Used Date Smoking Tobacco: Never Smokeless Tobacco: Never Tobacco Cessation:Counseling Given: Not Answered Alcohol Use Standard Drinks/Week Comments Yes 0 (1 standard drink = 0.6 oz pur e alcohol) 1-2 drinks/month AUDIT-C Answer Date Recorded Q1: How often do you have a drink containing alc ohol? 2-3 times a week 08/25/2022 Average Number of Drinks Not on file 023 Frequency of Binge Drinking Not on file 08/08 PHQ-2 Answer Date Recorded PHQ-2 Total Score (If total score is 3 or more points, staff should administer the PHQ-9) 0 06/05/2022 Personal Safety Answer Date Recorded Have you ever been in or are you currently in a harmful physical or emotional relationship or is someone making you feel afraid or unsafe? Denies 06/19/2024 Sex and Gender Information Value Date Recorded Sex Assigned at Not on file Legal Sex Male 1:24 PM RIG SITE ENGINEER Gender Identity Male 05/29/2021 7:52 PM RIG SITE ENGINEER Sexual Orientation Straight 11/03/2019 9: 44 PM CDT Last Filed Vital Signs Vital Sign Reading Time Taken Comments Blood Pressure 162/81 06/20/2024 12:00 AM RIG SITE ENGINEER Pulse 62 06/20/2024 12:00 AM RIG SITE ENGINEER Temperature 36.8 C (98.2 F) 06/19/2024 7:57 PM RIG SITE ENGINEER Respiratory Rate 16 06/20/2024 12:00 AM RIG SITE ENGINEER Oxygen Saturation 98% 06/20/2024 12:00 AM RIG SITE ENGINEER Inhaled Oxygen Concentration - - Weight 88.5 kg (195 lb) 06/19/2024 7:57 PM RIG SITE ENGINEER Height 182.9 cm (6') 06/19/2024 7:57 PM RIG SITE ENGINEER Body Mass Index 26.45 06/19/2024 7:57 PM RIG SITE ENGINEER Plan of Treatment Not on file Medical Devices Implanted Type Area Commodity Industry Analyst Device Identifier Shelf Expiration Date Model / Serial / Lot [employer] [id number] Attune Cementless Rotate Platform Knee 10 Baseplate Tibial - [id number] Implanted:Qty: 1 on 06/07/2020 by Lester Caro MD at [facility] Right: Knee [employer] 04/09/2029 [id number] / / [id number] [employer] [id number] Attune Cruciate Retain Cementless Knee Right 9 Component Femoral - [id number] Implanted:Qty: 1 on 06/07/2020 by Lester Caro MD at [facility] Right: Knee [employer] 01/08/2028 [id number] / / [id number] [employer] [id number] Attune 7mm Cruciate Retaining Rotate Platform Knee 9 Insert - [id number] Implanted:Qty: 1 on 06/07/2020 by Lester Caro MD at [facility] Right: Knee [employer] 11/07/2024 [id number] / / [id number] [employer] Angio-Seal Vip Bondek-Plus 8fr .038in 70cm Hemostatic Latex Free [id number] - [id number] Implanted:Qty: 1 on 08/25/2022 at [facility] [employer] 04/09/2023 [id number] / / [id number] Procedures Procedure Name Priority Date/Time Associated Diagnosis Comments URINALYSIS, MICROSCOPIC ONLY STAT 06/19/2024 11:15 PM RIG SITE ENGINEER URINALYSIS AND REFLEX TO MICROSCOPIC AND CULTURE STAT 06/19/2024 11:[address] HEAD WO CONTRAST ED 06/19/2024 8 :55 PM RIG SITE ENGINEER XR CHEST 1 VIEW ED 06/19/2024 8:42 PM RIG SITE ENGINEER ECG 12-LEAD STAT 06/19/2024 8:20 PM RIG SITE ENGINEER EGFR STAT 06/19/2024 8:03 PM RIG SITE ENGINEER DIFFERENTIAL AUTO STAT 06/19/2024 8:0 3 PM RIG SITE ENGINEER TROPONIN T HIGH-SENSITIVITY SERIES (BASELINE, 2HR, 4HR, 6HR) STAT 06/19/2024 8:03 PM RIG SITE ENGINEER COMPREHENSIVE METABOLIC PANEL STAT 06/19/2024 8:03 PM RIG SITE ENGINEER PRO B-TYPE NATRIURETIC PEPTIDE STAT 06/19/2024 8:03 PM RIG SITE ENGINEER CBC WITH AUTO DIFFERENTIAL STAT 06/19/2024 8:03 PM RIG SITE ENGINEER INFLUENZA A/B, RSV, AND COVID-19 PCR Routine 06/19/2024 8:03 PM RIG SITE ENGINEER PSA SCREEN Routine 06/05/2022 9:28 AM RIG SITE ENGINEER Prostate cancer screening COLONOSCOPY 02/09/2022 7:17 AM CDT HEPATITIS C ANTIBODY Routine 05/23/2017 3:05 PM RIG SITE ENGINEER Annual physical exam from Last 3 Months or Most Recently Relevant to Health Maintenance Results * (ABNORMAL) Urinalysis reflex to microscopic and culture Urine (06/19/2024 11:15 PM RIG SITE ENGINEER) Color, ur Yellow Yellow Clarity, ur Clear Clear [facility] ([place]) Specific gravity, ur 1.023 1.003 - 1.030 [facility] ([place]) pH, urine 6.0 [facility] ([place]) Comment: Interpretive Data U rine pH is affected by diet, medications, systemic acid-base disturbances, and renal tubular function. pH may affect urinary stone formation. For example, urine pH below 6.0 may help reduce the tendency for calcium phosphate stones and pH greater than 6.0 may reduce the tendency for uric acid stone formation. Source: [employer] Current Interpretive Data was last revised on 2017 Protein, ur ql Trace Negative [facility] ([place]) Glucose, ur ql Negative Negative [facility] ([place]) Ketones, ur Negative Negative [facility] ([place]) Bilirubin, ur Negative Negative [facility] ([place]) Blood, ur 1+(A) Negative [facility] ([place]) Urobilinogen, ur 2.0(A) <2.0 mg/dL [facility] ([place]) Nitrite, ur Negative Negative [facility] ([place]) Leukocyte esterase, ur Negative Negative [facility] ([place]) UA reflex comment Reflex to microscopic UA will be performed. [facility] ([place]) Urine 06/19/2024 11:1 5 PM RIG SITE ENGINEER 06/19/2024 11:17 PM RIG SITE ENGINEER [facility] MICROBIOLOGY - GENERA L ORDERABLES Final Result Performing Organization Address [facility]/ZIP Co de Phone Number SHANNAN WATSON ([place]) 1 [facility] [place] [address] * (ABNORMAL) Urinalysis, microscopic only (06/19/2024 11:15 PM RIG SITE ENGINEER) WBC, ur 6-10(A) 0 - 5 /HPF RBC, ur 11-20(A) 0 - 2 /HPF [facility] W[place] ([place]) Mucous, ur Present(A) SHANNAN Jacobson ([place]) Culture Reflex Comment Reflex conditions for urine culture (WBC >10) not met. [facility] ([place]) Urine 06/19/2024 11:1 5 PM RIG SITE ENGINEER 06/19/2024 11:17 PM RIG SITE ENGINEER [facility] URINE ORDERABLES Gwen l Result Performing Organization Address [facility] Co de Phone Number SHANNAN WATSON ([place]) 1 [facility] [place] [address] * CT Head WO Contrast (06/19/2024 8:55 PM RIG SITE ENGINEER) Anatomical Region Laterality Modality Head and Neck N/A Computed Tomogra phy 06/19/2024 9:05 PM RIG SITE ENGINEER Narrative 06/19/2024 9:11 PM RIG SITE ENGINEER EXAM DESCRIPTION: CT HEAD WO CONTRAST REASON FOR STUDY: Headache, new onset (Age >= 51y) Pt BIBEMS ([facility] 70) with c/o headache and high blood pressure from [facility]. Pt history of left sided stroke. TECHNIQUE: Axial images acquired through the brain without intravenous contrast. Images stored on PACS. Automated exposure control was used as a dose optimization technique for this examination. COMPARISON: 04/03/2023 FINDINGS: BRAIN: Redemonstrated large region of encephalomalacia within the right MCA territory no gross intraparenchymal hemorrhage. No gross mass effect or midline shift. The ventricles are prominent in stable in size, shape and morphology. Moderate periventricular white matter hypoattenuation unchanged. EXTRA-AXIAL SPACES: No extra-axial fluid collection or mass. Samuel cisterna magna. CALVARIUM: No fracture. SINUSES/MASTOIDS: No fluid or mucosal thickening. ORBITS: No significant abnormality. OTHER: No other significant abnormality. IMPRESSION: 1. Redemonstrated large region of encephalomalacia within the right MCA territory with no definite acute intracranial abnormality. Follow-up MRI may be performed for further evaluation if clinical concern for superimposed acute infarct. THIS IS AN ELECTRONICALLY VERIFIED FINAL REPORT 06/19/2024 9:11 PM - Electronically signed by Lester Carlson M.D. AG: JOSH Report ID: [id number] Reading Location: [place] [address] Procedure Note Lester Carlson MD - 06/19/2024 EXAM DESCRIPTION: CT HEAD WO CONTRAST REASON FOR STUDY: Headache, new onset (Age >= 49y) Pt BIBEMS ([facility] 70) with c/o headache and high blood pressure from [place]. Pt history of left sided stroke. TECHNIQUE: Axial images acquired through the brain without intravenous contrast. Images stored on PACS. Automated exposure control was used asa dose optimization technique for this examination. COMPARISON: 04/03/2023 FINDINGS: BRAIN: Redemonstrated large region of encephalomalacia within the rightMCA territory no gross intraparenchymal hemorrhage. No gross mass effect or midline shift. The ventricles are prominent in stable in size, shape and morphology. Moderate periventricular white matter hypoattenuationunchanged. EXTRA-AXIAL SPACES: No extra-axial fluid collection or mass. Megacisterna magna. CALVARIUM: No fracture. SINUSES/MASTOIDS: No fluid or mucosal thickening. ORBITS: No significant abnormality. OTHER: No other significant abnormality. IMPRESSION: 1. Redemonstrated large region of encephalomalacia within the right MCA territory with no definite acute intracranial abnormality. Follow-up MRImay be performed for further evaluation if clinical concern for superimposedacute infarct. THIS IS AN ELECTRONICALLY VERIFIED FINAL REPORT 06/19/2024 9:11 PM - Electronically signed by Lester Carlson M.D. AG: JOSH Report ID: [id number] Reading Location: [id number] [facility] CT PROCEDURES Final R esult * XR Chest 1 Vw Portable (06/19/2024 8:42 PM RIG SITE ENGINEER) Anatomical Region Laterality Modality Body, Chest N/A Computed Radiogr aphy 06/19/2024 9:01 PM RIG SITE ENGINEER Narrative 06/19/2024 9:04 PM RIG SITE ENGINEER EXAM DESCRIPTION: XR CHEST 1 VIEW REASON FOR STUDY: cough Pt BIBEMS ([facility] 70) with c/o headache and high blood pressure from [facility]. Pt history of left sided stroke. Non smoker Hx of carotid artery angioplasty left side No hx of cancer TECHNIQUE: Frontal radiographic view(s) of the chest. COMPARISON: 04/03/2023 FINDINGS: Minimal linear bibasilar opacities, likely atelectasis or scarring. No consolidation. No significant pleural effusion. No pneumothorax is seen. Heart size and mediastinal contours are normal. Subtle lucency of the right lung base. IMPRESSION: 1. Mild linear bibasilar opacities, likely atelectasis or scarring. 2. Subtle lucency at the right lung base, likely normal. No definitive evidence of free abdominal air. Recommend correlation with abdominal pain. Dedicated obstruction series or CT may be performed for further evaluation. THIS IS AN ELECTRONICALLY VERIFIED FINAL REPORT 06/19/2024 9:04 PM - Electronically signed by Lester Carlson M.D. AG: JOSH Report ID: [id number] Reading Location: [id number] Procedure Note Lester Carlson MD - 06/19/2024 EXAM DESCRIPTION: XR CHEST 1 VIEW REASON FOR STUDY: cough Pt BIBEMS ([facility] 70) with c/o headache and high blood pressure from [place]. Pt history of left sided stroke. Non smoker Hx of carotid artery angioplasty left side No hx of cancer TECHNIQUE: Frontal radiographic view(s) of the chest. COMPARISON: 04/03/2023 FINDINGS: Minimal linear bibasilar opacities, likely atelectasis or scarring. No consolidation. No significant pleural effusion. No pneumothorax isseen. Heart size and mediastinal contours are normal. Subtle lucency of the right lung base. IMPRESSION: 1. Mild linear bibasilar opacities, likely atelectasis or scarring. 2. Subtle lucency at the right lung base, likely normal. No definitive evidence of free abdominal air. Recommend correlation with abdominalpain. Dedicated obstruction series or CT may be performed for furtherevaluation. THIS IS AN ELECTRONICALLY VERIFIED FINAL REPORT 06/19/2024 9:04 PM - Electronically signed by Lester Carlson M.D. AG: AG Report ID: [id number] Reading Location: [place] [address] [facility] IM[facility] XR PROCEDURES Final R esult * ECG 12 lead (06/19/2024 8:20 PM RIG SITE ENGINEER) 06/19/2024 8:20 PM RIG SITE ENGINEER Narrative [facility] - 06/20/2024 11:56 AM RIG SITE ENGINEER Vent Rate: 54 bpm RR Interval: 1101 msec AK Interval: 198 msec QRS Duration: 91 msec QT Interval: 438 msec QTC Interval: 424 msec P-R-T Trent: 54 - -7 - 32 degrees IMPRESSION: SINUS BRADYCARDIA INCOMPLETE RIGHT BUNDLE BRANCH BLOCK [90+ ms QRS DURATION, TERMINAL R IN V1/V2, 40+ ms S IN I/aVL/V4/V5/V6] BORDERLINE ECG Compared to prior EKG, PVCs are no longer present Electronically Signed By: Carlo Elkins MD [facility] ECG ORDERABLES Final Res ult [facility] * (ABNORMAL) Troponin T high-sensitivity series (baseline, 2hr, 4hr, 6hr) (06/19/2024 8:03 PM RIG SITE ENGINEER) Trop T hs 33(H) <=22 ng/L Comment: Interpretive Data For further hscTnT resources including the diagnostic algorithm and an aid in interpretation, copy and paste this link: [email or web address].testcatalog.org/[email or web address] Current Interpretive Data last revised 2020. Blood 06/19/2024 8:03 PM RIG SITE ENGINEER 06/19/2024 8:06 PM RIG SITE ENGINEER [facility] BLOOD ORDERABLES Gwen l Result SHANNAN WATSON ([place]) 1 [facility] [place] [address] * Influenza A/B, RSV, and COVID-19 PCR Nasopharyngeal (06/19/2024 8:03 PM RIG SITE ENGINEER) COVID-19 RNA Negative Negative Influenza A RNA Negative Negative [facility] ([place]) Influenza B RNA Negative Negative [facility] ([place]) RSV RNA Negative Negative [facility] ([place]) Comment: Interpretive data: Testing performed by [facility]. This test is performed using the [employer] Xpert Xpress CoV-2/Flu/RSV plus assay. This is a multiplex, real- time reverse transcriptase PCR assay intended for the qualitative detection of nucleic acid from SARS-CoV-2, influenza A, influenza B, and respiratory syncytial virus. This assay has been cleared by the [place] Food and Drug administration. The performance characteristics have been verified by the [facility]. Results must be considered in the clinical context, and a negative result does not rule out infection. Interpretive Data last revised 2023 Nasopharyngeal 06/19/2024 8: 03 PM RIG SITE ENGINEER 06/19/2024 8:06 PM RIG SITE ENGINEER Narrative SHANNAN WATSON ([place]) - 06/19/2024 9:00 PM RIG SITE ENGINEER Is the Patient experiencing symptoms consistent with COVID?->Yes us [facility] MICROBIOLOGY - GENERA L ORDERABLES Final Result SHANNAN WATSON ([place]) 1 [facility] [place] [address] * eGFR (06/19/2024 8:03 PM RIG SITE ENGINEER) Pathologist [facility] eGFR 63 >=60 mL/min/1. 73 m2 Comment: Interpretive Data Reference Interval Normal >/= 90 mL/min/1.73m2 Mildly decreased* 60 - 89 mL/min/1.73m2 Mildly to moderately decreased 45 - 59 mL/min/1.73m2 Moderately to severely decreased 30 - 44 mL/min/1.73m2 Severely decreased 15 - 29 mL/min/1.73m2 Kidney Failure < 15 mL/min/1.73m2 *Relative to young adult level Estimated glomerular filtration rate is determined by the 2020 CKD-EPI equation recommended by the National Kidney Foundation (A Unifying Approach to GFR Estimation: Recommendations of the NKF-ASK Task Force on Reassessing the Inclusion of Race in Diagnosing Kidney Disease, JASN 2020). The CKD-EPI equation should not be used for patients with unstable renal function and has not been validated in children and those over 70. Current interpretive data was last reviewed 2021. Blood 06/19/2024 8:03 PM RIG SITE ENGINEER 06/19/2024 8:06 PM RIG SITE ENGINEER us [facility] BLOOD ORDERABLES Gwen l Result SHANNAN WATSON ([place]) 1 [facility] [place] [address] * Differential, auto (06/19/2024 8:03 PM RIG SITE ENGINEER) Pathologist [facility] Neutrophil abs 5.5 1.5 - 6.5 K/cumm Imm gran abs 0.0 0.0 - 0.1 K/cumm [facility] ([place]) Lymphocyte abs 2.5 0.8 - 3.3 K/cumm [facility] ([place]) Monocyte abs 0.8 0.2 - 0.8 K/cumm [facility] ([place]) Eosinophil abs 0.3 0.0 - 0.5 K/cumm [facility] ([place]) Basophil abs 0.1 0.0 - 0.1 K/cumm [facility] ([place]) Neutrophil pct 60.6 % [facility] ([place]) Comment: Interpretive Data Percent cell count reference ranges are not reported, since discordance with absolute values may lead to misinterpretation of CBC data. Current Interpretive Data was last revised on 2017. Imm gran pct 0.2 % [facility] ([place]) Comment: Interpretive Data Percent cell count reference ranges are not reported, since discordance with absolute values may lead to misinterpretation of CBC data. Current Interpretive Data was last revised on 2017. Lymphocyte pct 27.1 % [facility] ([place]) Comment: Interpretive Data Percent cell count reference ranges are not reported, since discordance with absolute values may lead to misinterpretation of CBC data. Current Interpretive Data was last revised on 2017. Monocyte pct 8.4 % [facility] ([place]) Comment: Interpretive Data Percent cell count reference ranges are not reported, since discordance with absolute values may lead to misinterpretation of CBC data. Current Interpretive Data was last revised on 2017. Eosinophil pct 2.9 % [facility] ([place]) Comment: Interpretive Data Percent cell count reference ranges are not reported, since discordance with absolute values may lead to misinterpretation of CBC data. Current Interpretive Data was last revised on 2017. Basophil pct 0.8 % [facility] Comment: Interpretive Data Percent cell count reference ranges are not reported, since discordance with absolute values may lead to misinterpretation of CBC data. Current Interpretive Data was last revised on 2017. Blood 06/19/2024 8:03 PM RIG SITE ENGINEER 06/19/2024 8:06 PM RIG SITE ENGINEER us Sophy BOWEN LAB BLOOD ORDERABLES Gwen montenegro Result [facility] [place] Department [place] [address] * Pro B-type natriuretic peptide (06/19/2024 8:03 PM RIG SITE ENGINEER) NT-proBNP 63 <=300 pg/mL Comment: Interpretive Comments: A. Dyspnea in Acute Care Setting All Ages: < 300 pg/ml, acute heart failure unlikely. < 50 yrs: 300 - 450 pg/ml, further investigation warranted. > 450 pg/ml, acute heart failure likely. 50 - 74 yrs: 300 - 900 pg/ml, further investigation warranted. > 900 pg/ml, acute heart failure likely . > or = 75 yrs: 450 - 1800 pg/ml, further investigation warranted. > 1800 pg/ml, acute heart failure likely. B. Non-acute Setting < 75 yrs < 125 pg/ml, rules out heart failure. > or = 125 pg/ml, further investigation warranted. > or = 75 yrs < 450 pg/ml, rules out heart failure. > or = 450 pg/ml, further investigation warranted. - Knowledge of each individual patient's NT-proBNP range may be more useful than using similar cut-points for every patient. Please note that marked elevations in NT-proBNP levels may be observed in state other than Left Ventricular Congestive Failure, including: acute coronary syndromes, right heart strain/failure (including pulmonary embolism and cor pulmonale), critical illness, renal failure, as well as advanced age. - References: 1. Luna MARTIN et.al. Eur Heart J. 2006:27:330-337. 2. Michi RW, Grant YANES. J. AM Shahram Cardiol: Cardiovasc Imag. 2009;2: 216- 225. Interpretive Data Last Revised Date: 2018. Blood 06/19/2024 8:03 PM RIG SITE ENGINEER 06/19/2024 8:06 PM RIG SITE ENGINEER us Sophy BOWEN LAB BLOOD ORDERABLES Gwen montenegro Result [facility] [place] Department [place] [address] * (ABNORMAL) CBC with auto differential (06/19/2024 8:03 PM RIG SITE ENGINEER) Pathologist [facility] WBC 9.0 3.8 - 9.9 K/cumm Hgb 14.3 13.0 - 17.5 g/dL [facility] Hct 44.9 38.9 - 50.3 % [facility]) Plt 264 150 - 400 K/cumm [facility] ([place]) MPV 9.1 9.1 - 12.3 fL [facility]) RBC 5.05 4.30 - 5.80 M/cumm [facility]) MCV 88.9 81.3 - 96.4 fL [facility] MCH 28.3 27.1 - 33.3 pg [facility] MCHC 31.8(L) 32.3 - 35.7 g/dL [facility]) RDW CV 12.8 11.1 - 14.9 % [facility] RDW SD 41.7 35.7 - 48.1 fL [facility] NRBC abs 0.00 0.00 - 0.01 K/cumm [facility] Blood 06/19/2024 8:03 PM RIG SITE ENGINEER 06/19/2024 8:06 PM RIG SITE ENGINEER us Sophy BOWEN LAB BLOOD ORDERABLES Gwen montenegro Result [facility] ([place] Department [place] [address] * (ABNORMAL) Comprehensive metabolic panel (06/19/2024 8:03 PM RIG SITE ENGINEER) Sodium 137 135 - 145 mmol/L Potassium, pl 3.7 3.3 - 4.9 mmol/L [facility] Chloride 100 97 - 110 mmol/L [facility]) CO2 27 22 - 32 mmol/L [facility] Anion gap 10 2 - 15 mmol/L [facility]) BUN 19 6 - 25 mg/dL [facility] Creatinine 1.23 0.80 - 1.30 mg/dL [facility] Glucose 108 70 - 199 mg/dL [facility] Comment: Interpretive Data Fasting glucose >/= 126 mg/dl is diagnostic for diabetes. Fasting is defined as no caloric intake for at least 8 hours. Fasting glucose between 100 mg/dl to 125 mg/dl is diagnostic of prediabetes. In a patient with classic symptoms of hyperglycemia or hyperglycemic crisis, a random glucose >/= 200 mg/dl is diagnostic for diabetes. In the absence of unequivocal hyperglycemia, results should be confirmed by repeat testing. The classification and Diagnosis of Diabetes Diabetes Care 2021; 46: S19-S40. Current interpretive data was last revised 2022. Calcium 10.3 8.5 - 10.3 mg/dL [facility] Bilirubin, total 0.9 0.1 - 1.2 mg/dL [facility]) Protein, pl 7.5 6.5 - 8.5 g/dL [facility]) Albumin 4.4 3.5 - 5.0 g/dL [facility] ([place]) Alk phos 152(H) 40 - 130 Units/L [facility]) ALT 31 7 - 55 Units/L [facility]) AST 31 10 - 50 Units/L [facility] ([place]) Comment:Slightly Hemolyzed S pecimen Blood 06/19/2024 8:03 PM RIG SITE ENGINEER 06/19/2024 8:06 PM RIG SITE ENGINEER us Sophy BOWEN LAB BLOOD ORDERABLES Gwen montenegro Result [facility] Department [place] [address] * PSA screen (06/05/2022 9:28 AM RIG SITE ENGINEER) PSA-Total 1.08 <=5.40 ng/mL [facility] Comment: Interpretive Data AGE SEX REFERENCE INTERVAL 0 minutes-150 years Female None 0 minutes-49 years Male None 50-59 years Male 0-3.90 60-69 years Male 0-5.40 70-79 years Male 0-6.20 80-150 years Male 0-6.20 The G[employer]ell PSA Total assay procedure was used. Results from different manufacturers or methods may not be comparable. Serial testing should be performed using the same method. Current interpretive data last revised 21. Blood 06/05/2022 9:28 AM RIG SITE ENGINEER 06/05/2022 2:08 PM RIG SITE ENGINEER us Uriel Underwood MD LAB BLOOD ORDERABLES Final Result Performing Organization Address City/State/ZIP Co pa Phone Number [facility] [phone] [facility] Department [place] [address] * COLONOSCOPY (02/09/2022 7:17 AM CDT) Anatomical Region Laterality Modality Other Narrative Procedure Note Gulshan Miranda MD - 02/09/2022 7:17 AM CDT [facility] Patient Name: Sadi Young Procedure Date: 02/09/2022 7:17 AM Date of : 1955 Admit Type: Outpatient Age: 66 Gender: Male Attending MD: Gulshan Miranda M.D. [facility] 2 Note Status: Finalized Patient Profile: Refer to note in patient chart for documentation of history and physical. Procedure: Colonoscopy Indications: Screening for colorectal malignant neoplasm, Last colonoscopy: March 2011 Referring MD: Uriel Underwood M.D. Providers: Gulshan Miranda M.D. Impression: - Hemorrhoids found on perianal exam. - One 5 mm polyp in the transverse colon, removedwith a cold snare. Resected and retrieved. - Diverticulosis in the sigmoid colon. - The examination was otherwise normal. Recommendation: - Discharge patient to home. - Resume previous diet. - Continue present medications. - Await pathology results. - Repeat colonoscopy in 5 years for surveillance. - Return to primary care physician as previously scheduled. Medicines: Propofol per Anesthesia Complications: No immediate complications. Estimated Blood Loss: Estimated blood loss: none. Procedure: Pre-Anesthesia Assessment: - This assessment was completed [Time ofAssessment] prior to the administration of sedation. The benefits, risks and alternatives of theprocedure and sedation were discussed and informed consentwas obtained. All questions were answered. Please referto the signed informed consent document in the medical record. The scope was passed under direct vision.The Colonoscope [id number] was introducedthrough the and advanced to the. The bowel preparation used was Miralax and bisacodyl tablets via extended prep with single dose instruction. The colonoscopy was performed without difficulty. The patient tolerated the procedure well. The quality of the bowel preparation was excellent. The ileocecal valve, appendiceal orifice, and rectum were photographed.The scope was passed under direct vision. The Pediatric Colonoscope [id number] was introducedthrough the anus and advanced to the the cecum, identifiedby appendiceal orifice and ileocecal valve. Findings: Hemorrhoids were found on perianal exam. A 5 mm polyp was found in the transverse colon. The polyp wassessile. The polyp was removed with a cold snare. Resection and retrieval were complete. Verification of patient identification for the specimen was done by the physician and nurse using the patient's name and birthdate. Estimated blood loss was minimal. A few small-mouthed diverticula were found in the sigmoid colon. The exam was otherwise without abnormality. Electronically signed by Gulshan Miranda M.D. Gulshan Miranda M.D. 02/09/2022 8:16:37 AM Number of Addenda: 0 Note Initiated On: 02/09/2022 7:17 AM Diagnosis Code(s): --- Professional --- K57.30, Diverticulosis of large intestine without perforation orabscess without bleeding D12.3, Benign neoplasm of transverse colon (hepatic flexure orsplenic flexure) K64.9, Unspecified hemorrhoids Z12.11, Encounter for screening for malignant neoplasm of colon Recognized by the [place] [employer] for promoting quality in endoscopy us Gulshan Miranda MD ENDOSCOPY PROCEDURES Final Re sult * Hepatitis C antibody (05/23/2017 3:05 PM RIG SITE ENGINEER) Hep C Ab NON-REACTI VE NON-REACTI VE [facility] [place] SIGNAL TO CUT-OFF 0.02 <1.00 [facility] [place] Blood specimen (specimen) 05/23/2017 3:05 PM RIG SITE ENGINEER 05/23/2017 3:06 PM RIG SITE ENGINEER Narrative Resulting Agency Comment Performing Organization Information: Site ID: [id number] Name: Marito Romano Address: [address] [place] [address] [facility] [address] Director: Uriel Littlejohn D.O., MPH us Uriel Underwood MD LAB MICROBIOLOGY - GENERAL ORDERABLES Final Result [facility] [place] from Last 3 Months or Most Recently Relevant to Health Maintenance Insurance [facility] MEDICARE COMMERCIAL GENERIC Member Subscriber Plan / Payer (Ef fective 2018-Present) Name:Sadi Young Relation to Subscriber:Self Name:Sadi Young Payer ID:[id number] Group ID:[id number] Type:COMMERCIAL Address: [address] [address] [place] [address] [employer] Member Subscriber Plan / Payer ( fective 2022-Present) Name:Sadi Young Relation to Subscriber:Self Name:Sadi Young Payer ID:[id number] Group ID:[id number] Type:COMMERCIAL Address: [address] [address] [place] [address] [facility] OPEN ACCESS MEDICARE MEDICARE [employer] Member Subscriber Plan / Payer ( fective 2002-) Name:HannahSadi Relation to Subscriber:Self Name:MarcialSadi peña Payer ID:[id number] Group ID:[id number] Type:COMMERCIAL Address: [facility] [address] [place] [address] MEDICARE [employer] [place] Member Subscriber Plan / Payer (Ef fective 2021-Present) Name:Sadi Young Relation to Subscriber:Self Name:Sadi Young Payer ID:[id number] Group ID:[id number] Type:COMMERCIAL Address: [address] [address] [place] [address] Advance Directives For more information, please contact: [phone] * Full Code (Latest Code Status on File) Date Activated Date Inactivated Comments 04/03/2023 2:23 PM 04/05/2023 8:10 PM * Full Code Date Activated Date Inactivated Comments 08/25/2022 5:46 PM 09/05/2022 8:12 PM * Full Code Date Activated Date Inactivated Comments 08/25/2022 5:46 PM 08/25/2022 5:46 PM * Full Code Date Activated Date Inactivated Comments 02/09/2022 7:11 AM 02/09/2022 1:10 PM * Full Code Date Activated Date Inactivated Comments 02/09/2022 7:11 AM 02/09/2022 7:11 AM Care Teams Sales Representative Aircraft Relationship Specialty Start Date End Date Clarita Das MD [address] [facility] [address] [place] [address] PCP - General Family Medicine 06/17/23
--- OUTSIDE RECORDS SUMMARY | 2024-08-26 16:46 | XMS_ITS | Continuity of Care Document ---
Author Organization [facility] Address [address] [place] [address] [address] [place] [address] Phone Care Team Providers Care Engineering Aid Name Role Phone Suman PT,MPT,ATC, Bear Unavailable Unavai lable Procedures Procedure Date Therapeutic Activities Neuromuscular Re-Ed Therapeutic Activities Therapeutic Exercise Neuromuscular Re-Ed Therapeutic Activities Neuromuscular Re-Ed Therapeutic Activities Neuromuscular Re-Ed Therapeutic Exercise Therapeutic Activities Neuromuscular Re-Ed Therapeutic Exercise Progress Note Therapeutic Exercise Therapeutic Activities Neuromuscular Re-Ed Neuromuscular Re-Ed Therapeutic Activities Therapeutic Exercise Therapeutic Activities Neuromuscular Re-Ed Therapeutic Activities Manual Therapy Neuromuscular Re-Ed Therapeutic Activities Neuromuscular Re-Ed Manual Therapy Therapeutic Activities Manual Therapy Neuromuscular Re-Ed Therapeutic Activities Neuromuscular Re-Ed PT Evaluation Moderate Complexity Advance Directives Directive Yes / No Effective Date File Name No Information Encounters Encounter Description Practice Location Reason(s) For Visit Diagnoses Date Provider Providers Copied on Encounter [facility] [facility], [place], [place], [id number], tel:[phone] [place] No Information b- 1 GHAZAL Bergman, . [facility] [place] [address] [place] [address], [id number], tel:[phone] [place] No Information b 1 Suman [place], . [facility] [place] [address] [place] [address], [id number], tel:[phone] [place] No Information b- 1 Suman [place], . [facility] [place] [address] [place] [address], [id number], tel:[phone] [place] No Information b- 1 Suman [place], . [facility] [place] [address] [place] [address], [id number], tel:[phone] [place] No Information b- 1 Suman [place], . [facility] [place] [address] [place] [address], [id number], tel:[phone] [place] No Information Feb-0 1 Suman [place], . [facility] [place], [id number], tel:[phone] [place] No Information Feb-0 - 1 GHAZAL Bergman, . [facility], [id number], tel:[phone] [place] No Information Feb-0 - 1 [place]. [facility], [address], [place], [place], [id number], tel:[phone] [place] No Information 1 Suman [place], . [facility], [address], [place], [place], [id number], tel:[phone] [place] No Information 1 Suman [place], . [facility], [address], [place], [place], [id number], tel:[phone] [place] No Information 1 Suman [place], . [facility], [address], [place], [place], [id number], tel:[phone] [place] No Information 1 Suman [place], . Family History Family Member Type Diagnosis Age At Onset No Information Payers Payer name Insurance type Covered constitution party ID De hahn(s) Medicare [place] MB [id number] Group Administrators [id number] Social History Type Description Quantity Date Captured Comments Sex Male Smoking Status No Information Chief Complaint And Reason For Visit No Information Reason For Referral Reason For Referral No Information History Of Present Illness Encounter Date Complaint History Of Prese nt Illness No Information Functional Status Date Functional Assessmen t No Information Instructions Date Instruction Sebastián maya Giving encouragement to exercise Related to Overweight Giving encouragement to exercise Related to Overweight Assessments Type Assessment Date No Information Patient Care Teams Name Effective Dates (start - stop) Status Members No Information
--- OUTSIDE RECORDS SUMMARY | 2024-08-26 16:46 | XMS_ITS | Clinical Summary ---
Author Organization [facility] [address] Address [address] [place] [address] Phone Care Team Providers Care Communications Engineering Technician Name Role Phone Clarita Das MD Primary Care Provider Allergies No known active allergies Medications atorvastatin [...] 06/21/2022 Assessment & Plan (06/21/2022 2:58 PM FITNESS WORKER): Ear fullness and decreased hearing over the last 1-2 weeks. Cerumen impaction noted on exam, L ear clear. R EAC flushed with large amount of cerumen removal. Hearing improved post flush. No signs of infection on exam. Primary osteoarthritis of right knee 04/04/2020 Overview (04/04/2020): Added automatically from request for surgery [id number] Assessment & Plan (06/01/2021 9:50 AM FITNESS WORKER): Knee replacement has helped pain and discomfort is considerably. Verrucous keratosis 08/06/2018 Assessment & Plan (08/13/2018 11:40 AM FITNESS WORKER): Posterior neck Bx site healing well, no complications or signs of infection reported or noted on exam Pathology discussed, benign reassurance given Follow up PRN Assessment & Plan (08/06/2018 10:57 AM FITNESS WORKER): Right posterior neck Biopsy/ies done per procedure note. Wound care reviewed with patient. Follow-up per path. Medicare annual wellness visit, subsequent 05/23 Assessment & Plan (06/05/2022 10:28 AM FITNESS WORKER): History and physical completed patient's health risk assessment health maintenance reviewed in addressed. Patient did advised get the updated shingles vaccine. Pneumonia vaccines completed prior to age 63. Assessment & Plan (06/01/2021 9:49 AM FITNESS WORKER): History and physical completed patient's health risk assessment health maintenance reviewed in addressed. Patient pneumococcal vaccines at within the past 5 years. His last colonoscopy was March 2011 will schedule colonoscopy for 2021 COVID vaccines completed including booster. Assessment & Plan (05/30/2020 9:58 AM FITNESS WORKER): History and physical completed patient's health risk assessment health maintenance reviewed in addressed. Lab will include BMP FLP had a PSA.. Patient was scheduled for knee replacement right-sided this is postponed May still no restrictions on proceeding with his knee replacement. Assessment & Plan (05/25/2019 1:17 PM FITNESS WORKER): Patient's history and physical completed health risk assessment health maintenance all addressed. Patient completed his pneumonia vaccines over year ago shingles vaccines also been completed. Plans at this time check BMP fasting lipid profile. Assessment & Plan (05/24/2018 12:33 PM FITNESS WORKER): Annual exam patient will get a cholesterol, [...] vaccine. Assessment & Plan (05/23/2017 6:28 PM FITNESS WORKER): History and physical completed no abnormalities noted laboratory studies include BMP CBC hepatitis C screening lipid panel PSA. Mallet finger 02/17/2015 Resolved Problems Problem Noted Date Diagnosed Date Resolved Date Cerebral edema 09/05/2022 09/05/2022 Leukocytosis 09/05/2022 09/05/2022 Pre-operative clearance 04/18/202005/11 Assessment & Plan (04/18/2020 12:30 PM FITNESS WORKER): Patient is scheduled for right total knee replacement week of May.. No significant health problems is on no medications his exam today is benign vitals excellent only concern on discomfort is the right knee.. No restriction patient getting knee replacement/surgery riding his preop labs and EKG are within the acceptable range. Encounters Date Type Department Care Team Description 06/19/2024 7:51 PM FITNESS WORKER - 06/20/2024 12:42 AM [facility] Emergency [facility] Emergency Department [address] [place] [id number] Bee Kelley MD Acute nonintractable headache, unspecified headache type (Primary Dx); Asymptomatic microscopic hematuria; Upper respiratory tract infection, unspecified type Discharge Disposition: Discharge to home or self care 06/19/2024 7:30 PM FITNESS WORKER - 06/19/2024 11:59 PM FITNESS WORKER Hospital Encounter [facility] Emergency, Room R Discharge Disposition: Discharge to home or self care from Last 3 Months Immunizations Immunization Administration Dates Next Due Influenza, Trivalent, High D ose, Split, Preservative Free, Intramuscular 02/17/2020 Pneumococcal Conjugate PCV 13 08/07/2017 Pneumococcal Conjugate, Unspecified 07/12/2018 Tdap 05/23/2018 Surgical History Surgery Date Site/Laterality Comments KNEE SURGERY LEG SURGERY COLONOSCOPY 03/10/2011 - 04/09/2011 KNEE ARTHROSCOPY W/ LATERAL RELEASE 2003, 2004 FRACTURE SURGERY 1973 PERCUTANEOUS THROMBECTOMY ARTERIAL RIGHT 08/25/2022 Right R MCA thrombectomy CAROTID ARTERY ANGIOPLASTY 08/25/2022 Right Medical History Medical History Date Comments Arthritis 2017 Family History Medical History Relation Name Comments Hypertension Father mundo Hypertension Mother sanjeev becerra Hypertension Other Relation Name Status Comments Father mundo Mother sanjeev becerra Other Social History Tobacco Use Types Packs/Day Years [...] on file Legal Sex Male 1:24 PM FITNESS WORKER Gender Identity Male 05/29/2021 7:52 PM FITNESS WORKER Sexual Orientation Straight 11/03/2019 9: 44 PM CDT Obstetrics History Last Filed Vital Signs Vital Sign Reading Time Taken Comments Blood Pressure 162/81 06/20/2024 12:00 AM FITNESS WORKER Pulse 62 06/20/2024 12:00 AM FITNESS WORKER Temperature 36.8 C (98.2 F) 06/19/2024 7:57 PM FITNESS WORKER Respiratory Rate 16 06/20/2024 12:00 AM FITNESS WORKER Oxygen Saturation 98% 06/20/2024 12:00 AM FITNESS WORKER Inhaled Oxygen Concentration - - Weight 88.5 kg (195 lb) 06/19/2024 7:57 PM FITNESS WORKER Height 182.9 cm (6') 06/19/2024 7:57 PM FITNESS WORKER Body Mass Index 26.45 06/19/2024 7:57 PM FITNESS WORKER Plan of Treatment Health Maintenance Due Date Last Done Comments Hepatitis B Screening 1971 Zoster Vaccine (1 of 2) 2003 Pneumococcal vaccine 65+ (2 of 2 - PPSV23) 07/12/2019 07/12/2018, 08/07/2017 Depression Screening 06/05/2023 06/05/2022, 06/01/2021, 05/25/2019 Well Visit 65+ 06/05/2023 06/05/2022, 05/11, 05/30/2020, Additional history exists Covid-19 Vaccine (5 - 2023-2 5 season) 2024 03/23/2022, 04/25/2021, 08/13/2020, Additional history exists Influenza Vaccine (#1) 2024 , 03/03/2021, 02/17/2020 Fall Risk Assessment 04/05/2024 04/05/2023, 06/05/2022, 06/01/2021, Additional history exists DTaP/Tdap/Td Vaccine (2 - Td or Tdap) 05/23/2028 05/23/2018 Colon Cancer Screening-Colonoscopy 02/10/2032 02/09/2022, 03/19/2011 Hepatitis C Screening Completed 05/23/2017 Colon Cancer Screening-CT Colonography Discontinued 02/09/2022, 03/19/2011 Colon Cancer Screening-DNA Stool Discontinued 02/10/20, 03/19/2011 Colon Cancer Screening-FIT Discontinued 02/09/2022, Colon Cancer Screening-Sigmoidoscopy Discontinued 02/09/2022, 03/19/2011 Prostate Cancer Screening-PSA Discontinued , 05/30/2020, 05/23/2017, Additional history exists Medical Devices Implanted Type Area Health Policy Nurse Device Identifier Shelf Expiration Date Model / Serial / Lot [employer] [id number] Attune Cementless Rotate Platform Knee 10 Baseplate Tibial - [id number] Implanted:Qty: 1 on 06/07/2020 by Lester Caro MD at [facility] Right: Knee [employer] 04/09/2029 [id number] / / [id number] [employer] [id number] Attune Cruciate Retain Cementless Knee Right 9 Component Femoral - [id number] Implanted:Qty: 1 on 06/07/2020 by Lester Caro MD at [facility] Right: Knee [employer] 01/08/2028 [id number] / / [id number] [employer] [id number] Attune 7mm Cruciate Retaining Rotate Platform Knee 9 Insert - [id number] Implanted:Qty: 1 on 06/07/2020 by Lester Caro MD at [facility] Right: Knee [employer] 11/07/2024 [id number] / / [id number] Just Above Cost Angio-Seal Vip Bondek-Plus 8fr .038in 70cm Hemostatic Latex Free [id number] - [id number] Implanted:Qty: 1 on 08/25/2022 at [facility] [employer] 04/09/2023 [id number] / / [id number] Procedures Procedure Name Priority Date/Time Associated Diagnosis Comments URINALYSIS, MICROSCOPIC ONLY STAT 06/19/2024 11:15 PM FITNESS WORKER URINALYSIS AND REFLEX TO MICROSCOPIC AND CULTURE STAT 06/19/2024 11:[address] HEAD WO CONTRAST ED 06/19/2024 8 :55 PM FITNESS WORKER XR CHEST 1 VIEW ED 06/19/2024 8:42 PM FITNESS WORKER ECG 12-LEAD STAT 06/19/2024 8:20 PM FITNESS WORKER EGFR STAT 06/19/2024 8:03 PM FITNESS WORKER DIFFERENTIAL AUTO STAT 06/19/2024 8:0 3 PM FITNESS WORKER TROPONIN T HIGH-SENSITIVITY SERIES (BASELINE, 2HR, 4HR, 6HR) STAT 06/19/2024 8:03 PM FITNESS WORKER COMPREHENSIVE METABOLIC PANEL STAT 06/19/2024 8:03 PM FITNESS WORKER PRO B-TYPE NATRIURETIC PEPTIDE STAT 06/19/2024 8:03 PM FITNESS WORKER CBC WITH AUTO DIFFERENTIAL STAT 06/19/2024 8:03 PM FITNESS WORKER INFLUENZA A/B, RSV, AND COVID-19 PCR Routine 06/19/2024 8:03 PM FITNESS WORKER PSA SCREEN Routine 06/05/2022 9:28 AM FITNESS WORKER Prostate cancer screening COLONOSCOPY 02/09/2022 7:17 AM CDT HEPATITIS C ANTIBODY Routine 05/23/2017 3:05 PM FITNESS WORKER Annual physical exam from Last 3 Months or Most Recently Relevant to Health Maintenance Results * (ABNORMAL) Urinalysis reflex to microscopic and culture Urine (06/19/2024 11:15 PM FITNESS WORKER) Color, ur Yellow Yellow Clarity, ur Clear [...] tendency for uric acid stone formation. Source: [facility] Salt Rights Current Interpretive Data was last revised on [...] [facility] ([place]) Urine 06/19/2024 11:1 5 PM FITNESS WORKER 06/19/2024 11:17 PM FITNESS WORKER Sophy BOWEN LAB MICROBIOLOGY - GENERA L ORDERABLES Final Result Performing Organization Address City/[facility]/ZIP Co de Phone Number SHANNAN WATSON ([place]) 1 [facility] [place] [address] * (ABNORMAL) Urinalysis, microscopic only (06/19/2024 11:15 PM FITNESS WORKER) WBC, ur 6-10(A) 0 - 5 /HPF RBC, ur 11-20(A) 0 - 2 /HPF SHANNAN WATSON ([place]) Mucous, ur Present(A) CERGABBIE Jacobson ([place]) Culture Reflex Comment Reflex conditions for urine culture (WBC >10) not met. [facility] ([place]) Urine 06/19/2024 11:1 5 PM FITNESS WORKER 06/19/2024 11:17 PM FITNESS WORKER Sophy B[facility] LAB URINE ORDERABLES Gwen l Result Performing Organization Address [facility] Co de Phone Number SHANNAN WATSON ([place]) 1 [facility] [place] [address] * CT Head WO Contrast (06/19/2024 8:55 PM FITNESS WORKER) Anatomical Region Laterality Modality Head and Neck N/A Computed Tomogra phy 06/19/2024 9:05 PM FITNESS WORKER Narrative 06/19/2024 9:11 PM FITNESS WORKER EXAM DESCRIPTION: CT HEAD WO CONTRAST REASON FOR STUDY: Headache, new onset (Age >= 51y) Pt BIBEMS ([facility] 72) with c/o headache and high blood pressure from [place]. Pt history of left sided stroke. [...] Lester Carlson M.D. AG: JOSH Report ID: [id number] Reading Location: [id number] Procedure Note Lester Carlson MD - 06/19/2024 EXAM DESCRIPTION: CT HEAD WO CONTRAST REASON FOR STUDY: Headache, new onset (Age >= 49y) Pt BIBEMS ([facility] 72) with c/o headache and high blood pressure from [place]. Pt history of left sided stroke. TECHNIQUE: [...] Lester Carlson M.D. AG: JOSH Report ID: [id number] Reading Location: [id number] Sophy BWOEN IMG CT PROCEDURES Final R esult * XR Chest 1 Vw Portable (06/19/2024 8:42 PM FITNESS WORKER) Anatomical Region Laterality Modality Body, Chest N/A Computed Radiogr aphy 06/19/2024 9:01 PM FITNESS WORKER Narrative 06/19/2024 9:04 PM FITNESS WORKER EXAM DESCRIPTION: XR CHEST 1 VIEW REASON FOR STUDY: cough Pt BIBEMS ([facility] 72) with c/o headache and high blood pressure from [facility]. Pt history of left sided stroke. [...] Lester Carlson M.D. AG: JOSH Report ID: [id number] Reading Location: [id number] Procedure Note Lester Carlson MD - 06/19/2024 EXAM DESCRIPTION: XR CHEST 1 VIEW REASON FOR STUDY: cough Pt BIBEMS ([facility] 70) with c/o headache and high blood pressure from [place]. Pt history of left sided stroke. Non [...] Lester Carlson M.D. AG: AG Report ID: [id number] Reading Location: [place] [address] Sophy BOWEN IMG XR PROCEDURES Final R esult * ECG 12 lead (06/19/2024 8:20 PM FITNESS WORKER) 06/19/2024 8:20 PM FITNESS WORKER Narrative [facility] - 06/20/2024 11:56 AM FITNESS WORKER Vent Rate: 54 bpm RR Interval: 1101 msec [place] Interval: 198 msec QRS Duration: 91 msec QT Interval: 438 msec QTC Interval: 424 msec P-R-T [place]: 54 - -7 - 32 degrees IMPRESSION: SINUS BRADYCARDIA INCOMPLETE RIGHT BUNDLE BRANCH BLOCK [90+ ms QRS DURATION, TERMINAL R IN V1/V2, 40+ ms S IN I/aVL/V4/V5/V6] BORDERLINE ECG Compared to prior EKG, PVCs are no longer present Electronically Signed By: Carlo Elkins MD Sophy BOWEN ECG ORDERABLES Final Res ult [facility] * (ABNORMAL) Troponin T high-sensitivity series (baseline, 2hr, 4hr, 6hr) (06/19/2024 8:03 PM FITNESS WORKER) Trop T hs 33(H) <=22 ng/L Comment: Interpretive Data For further hscTnT resources including the diagnostic algorithm and an aid in interpretation, copy and paste this link: [email or web address].testcatalog.org/show/[email or web address] Current Interpretive Data last revised 2020. Blood 06/19/2024 8:03 PM FITNESS WORKER 06/19/2024 8:06 PM FITNESS WORKER Sophy BOWEN LAB BLOOD ORDERABLES Gwen l Result SHANNAN [facility] ([place]) 1 [facility] Department [place] [address] * Influenza A/B, RSV, and COVID-19 PCR Nasopharyngeal (06/19/2024 8:03 PM FITNESS WORKER) Pathologist [facility] COVID-19 RNA Negative Negative Influenza A RNA Negative Negative [facility] ([place]) Influenza B RNA Negative Negative [facility]) RSV RNA Negative Negative [facility] ([place]) Comment: Interpretive data: Testing performed by [facility]. This test is performed using the [employer] Xpert Xpress CoV-2/Flu/RSV plus assay. This is a multiplex, real- time reverse transcriptase PCR assay intended for the qualitative detection of nucleic acid from SARS-CoV-2, influenza A, influenza B, and respiratory syncytial virus. This assay has been cleared by the [place] Food and Drug administration. The performance characteristics have been verified by the [facility]. Results must be considered in the clinical context, and a negative result does not rule out infection. Interpretive Data last revised 2023 Nasopharyngeal 06/19/2024 8: 03 PM FITNESS WORKER 06/19/2024 8:06 PM FITNESS WORKER Narrative [facility] ([place]) - 06/19/2024 9:00 PM FITNESS WORKER Is the Patient experiencing symptoms consistent with COVID?->Yes Sophy BOWEN LAB MICROBIOLOGY - GENERA L ORDERABLES Final Result SHANNAN WATSON ([place]) 1 [facility] Department [place] [address] * eGFR (06/19/2024 8:03 PM FITNESS WORKER) eGFR 63 >=60 mL/min/1. 73 m2 Comment: [...] last reviewed 2021. Blood 06/19/2024 8:03 PM FITNESS WORKER 06/19/2024 8:06 PM FITNESS WORKER us Sophy BOWEN LAB BLOOD ORDERABLES Gwen l Result SHANNAN WATSON ([place]) 1 [facility] Department [place] [address] * Differential, auto (06/19/2024 8:03 PM FITNESS WORKER) Neutrophil abs 5.5 1.5 - 6.5 K/cumm Imm gran abs 0.0 0.0 - 0.1 K/cumm [facility] ([place]) Lymphocyte abs 2.5 0.8 - 3.3 K/cumm [facility] ([place]) Monocyte abs 0.8 0.2 - 0.8 K/cumm [facility] ([place]) Eosinophil abs 0.3 0.0 - 0.5 K/cumm [...] revised on 2017. Blood 06/19/2024 8:03 PM FITNESS WORKER 06/19/2024 8:06 PM FITNESS WORKER us Sophy BOWEN LAB BLOOD ORDERABLES Gwen montenegro Result SHANNAN WATSON ([place]) 1 [facility] Department [place] [address] * Pro B-type natriuretic peptide (06/19/2024 8:03 PM FITNESS WORKER) NT-proBNP 63 <=300 pg/mL Comment: Interpretive Comments: [...] as advanced age. - References: 1. Luna JL et.al. Eur Heart J. 2006:27:330-337. 2. Michi RW, Grant YANES. J. AM Shahram Cardiol: Cardiovasc Imag. 2009;2: 216- 225. Interpretive Data Last Revised Date: 2018. Blood 06/19/2024 8:03 PM FITNESS WORKER 06/19/2024 8:06 PM FITNESS WORKER us Sophy BOWEN LAB BLOOD ORDERABLES Gwen l Result SHANNAN RAZ ([place]) 4 [facility] Department [place] [address] * (ABNORMAL) CBC with auto differential (06/19/2024 8:03 PM FITNESS WORKER) Pathologist [facility] WBC 9.0 3.8 - 9.9 K/cumm Hgb [...] RDW SD 41.7 35.7 - 48.1 fL [facility] ([place]) NRBC abs 0.00 0.00 - 0.01 K/cumm [facility] ([place]) Blood 06/19/2024 8:03 PM FITNESS WORKER 06/19/2024 8:06 PM FITNESS WORKER us Sophy BOWEN LAB BLOOD ORDERABLES Gwen montenegro Result [facility] ([place]) 1 [facility] Department [place] [address] * (ABNORMAL) Comprehensive metabolic panel (06/19/2024 8:03 PM FITNESS WORKER) Sodium 137 135 - 145 mmol/L Potassium, pl 3.7 3.3 - 4.9 mmol/L [facility] ([place]) Chloride 100 97 - 110 mmol/L [facility]) CO2 27 22 - 32 mmol/L [facility] ([place]) Anion gap 10 2 - 15 mmol/L [facility] ([place]) BUN 19 6 - 25 mg/dL [facility] ([place]) Creatinine 1.23 0.80 - 1.30 mg/dL [facility] ([place]) Glucose 108 70 - 199 mg/dL [facility] ([place]) Comment: Interpretive Data Fasting glucose [...] Hemolyzed S pecimen Blood 06/19/2024 8:03 PM FITNESS WORKER 06/19/2024 8:06 PM FITNESS WORKER Sophy BOWEN LAB BLOOD ORDERABLES Gwen l Result [facility] ([place]) 1 [facility] Department [place] [address] * PSA screen (06/05/2022 9:28 AM FITNESS WORKER) PSA-Total 1.08 <=5.40 ng/mL SHANNAN Comment: Interpretive [...] last revised 21. Blood 06/05/2022 9:28 AM FITNESS WORKER 06/05/2022 2:08 PM FITNESS WORKER us Uriel Underwood MD LAB BLOOD ORDERABLES Final Result Performing Organization Address City/State/ZIP [facility] Phone Number SHANNAN [phone] [facility] Department [place] [address] * COLONOSCOPY (02/09/2022 7:17 AM CDT) Anatomical Region Laterality Modality Other Narrative Procedure Note Gulshan Miranda MD - 02/09/2022 7:[address] [facility] Patient Name: Sadi Becerra Procedure Date: 02/09/2022 7:17 AM Date of : 1955 Admit Type: Outpatient Age: 66 Gender: Male Attending MD: Gulshan Miranda M.D. Room: [facility] ENDOSCOPY ROOM 2 Note Status: Finalized Patient [...] scope was passed under direct vision.The Colonoscope [id number] was introducedthrough the and advanced to the. The bowel preparation used was Miralax and bisacodyl tablets via extended prep with single dose instruction. The colonoscopy was performed without difficulty. The patient tolerated the procedure well. The quality of the bowel preparation was excellent. The ileocecal valve, appendiceal orifice, and rectum were photographed.The scope was passed under direct vision. The Pediatric Colonoscope [id number] was introducedthrough the anus and advanced to [...] malignant neoplasm of colon Recognized by the [place] [employer] for promoting quality in endoscopy us Gulshan Miranda MD ENDOSCOPY PROCEDURES Final Re sult * Hepatitis C antibody (05/23/2017 3:05 PM FITNESS WORKER) Hep C Ab NON-REACTI VE NON-REACTI VE [facility] [place] SIGNAL TO CUT-OFF 0.02 <1.00 [facility] Blood specimen (specimen) 05/23/2017 3:05 PM FITNESS WORKER 05/23/2017 3:06 PM FITNESS WORKER Narrative Resulting Agency Comment Performing Organization Information: Site ID: [id number] Name: [facility] Address: [address] [facility] [address] Director: Uriel Littlejohn D.O., MPH us Uriel Underwood MD LAB MICROBIOLOGY - GENERAL ORDERABLES Final Result [facility]rin [facility] [place] [facility] from Last 3 Months or Most Recently Relevant to Health Maintenance Insurance [facility] MEDICARE COMMERCIAL GENERIC Member Subscriber Plan / Payer ( fective 2018-Present) Name:Sadi Becerra Relation to Subscriber:Self Name:Sadi Becerra Payer ID:[id number] Group ID:[id number] Type:COMMERCIAL Address: [facility] [address] [place] [address] [facility] Member Subscriber Plan / Payer ( fective 2022-) Name:Sadi Becerra Relation to Subscriber:Self Name:Sadi Becerra Payer ID:[id number] Group ID:[id number] Type:COMMERCIAL Address: [address] [address] [place] [address] [facility] OPEN ACCESS MEDICARE MEDICARE [employer] [place] Member Subscriber Plan / Payer ( fective 2002-Present) Name:MarcialSadi peña Relation to Subscriber:Self Name:Hannah Sadi Jacobson Payer ID:[id number] Group ID:[id number] Type:COMMERCIAL Address: [address] [address] [place] [address] MEDICARE [employer] [place] Member Subscriber Plan / Payer (Ef fective 2021-Present) Name:Sadi Becerra Relation to Subscriber:Self Name:Sadi Becerra Payer ID:[id number] Group ID:[id number] Type:COMMERCIAL Address: [address] [address] [place] [address] Advance Directives For more information, please contact: [phone] * Full Code (Latest Code Status on [...] 7:11 AM 02/09/2022 7:11 AM Care Teams Communications Engineering Technician Relationship Specialty Start Date End Date Clarita Das MD [address] [facility] [address] [place] [address] PCP - General Family Medicine 06/17/23
[2024-08-31 15:23] LABS: Vitamin D 1,25 (OH)2 Total 61 pg/mL (18-72); Vitamin D2 1,25 (OH)2 <8 pg/mL; Vitamin D3 1,25 (OH)2 61 pg/mL
== END 2024-08-26 15:10 | disposition home or self-care (01) ==
PROVIDERS: PCP Family Medicine; Visit Provider Student in an Organized Health Care Education/Training Program
DX: I10 Essential (primary) hypertension (principal); E03.9 Hypothyroidism, unspecified; R53.83 Other fatigue; E55.9 Vitamin D deficiency, unspecified
CPT/HCPCS: 36415; 80053; 82607; 82652; 84443; 85025

== ENCOUNTER 2025-04-30 13:47 | Outpatient (CLI) | payer MEDICARE, OTHER, SELFPAY ==
--- NOTE | ~2025-04-30 | CT_ITS ---
EXAM/PROCEDURE: CT sinus wo con HISTORY: J32.9 - Chronic sinusitis, unspecified COMPARISON: CT exam from May 06, 2023 TECHNIQUE: Paranasal sinus CT FINDINGS: Frontal, sphenoid, and maxillary sinuses all are fully aerated. Ostiomeatal complexes are patent bilaterally. Nasal septum is slightly deviated to the left but otherwise most of it is midline. Moderate-sized spur along the left mid septum. Turbinates are unremarkable. No acute or aggressive bony or soft tissue process seen in adjacent bony structures or soft tissues. Mastoid air cells and middle ear cavities are fully aerated. Incompletely visualized old right MCA large stroke. IMPRESSION: No significant paranasal sinus disease. Reviewed, dictated and finalized at location A. [employer]ING G[employer]ER
--- OUTSIDE RECORDS SUMMARY | 2025-04-30 13:52 | XMS_ITS | Encounter Summary ---
Author Organization [facility] Address [address] [place] [address] Phone Care Team Providers Care Seafood Manager Name Role Phone Kulwant Mckay MD Primary Care Provider Reason for Visit * Reason Onset Date Comments Scheduling Appointments 04/30/2025 Encounter Details Date Type Department Care Team (Late st Contact Info) Description 04/30/[address] [facility] Medicine Stroke [address] [facility] [address] [place] [address] Mercedes Holt RMA Scheduling Appointments Social History Tobacco Use Types Packs/Day Years Used Date Smoking Tobacco: Never Smokeless Tobacco: Never Alcohol Use Standard Drinks/Week Comments Yes 0 [...] on file Legal Sex Male 1:24 PM PENCIL MAKER Gender Identity Male 05/29/2021 7:52 PM PENCIL MAKER Sexual Orientation Straight 11/03/2019 9: 44 PM CDT documented as of this encounter Miscellaneous Notes * Telephone Encounter - Mercedes Holt RMA - 04/30/2025 9:34 AM CST Ms. Young would like to know if Dr. Ryan has had a change to review OT notes from Dr. Powell (DOS ? Dr. Powell is recommending Botox and a custom splint. Ms Hannah would like Sadi to be able to get the botox closer to home and would like Dr. Ryan's recommendations. [place] MAK[place] documented in this encounter Plan of Treatment Not on file documented as of this encounter Visit Diagnoses Not on filedocumented in this encounter Care Teams Seafood Manager Relationship Specialty Start Date End Date Kulwant Mckay MD [address] [facility] [address] [place] [address] PCP - General Family Medicine 01/05/25 documented as of this encounter
--- OUTSIDE RECORDS SUMMARY | 2025-04-30 13:52 | XMS_ITS | Clinical Summary ---
Author Organization [facility] [address] Address [address] [place] [address] Phone Care Team Providers Care Oracle Fusion Developer Name Role Phone Kulwant Mckay MD Primary Care Provider Allergies No known [...] capsule 1 3 Active Additional Information Patient not taking.Reported on 03/08/2025 bisacodyL (DULCOLAX) 10 mg suppositoryIndi cations:constip ation [...] 2 (two) times a day 3 Active Additional Information Patient not taking.Reported on 03/08/2025 aspirin 81 mg enteric coated tablet Take [...] mg total) by mouth daily 4 Active buPROPion XL (WELLBUTRIN XL) 150 mg 24 hr tablet Take 1 tablet (150 mg total) by mouth daily 5 Active Active Problems Problem Noted Date Diagnosed [...] 06/21/2022 Assessment & Plan (06/21/2022 2:58 PM SUPERVISOR DIALS): Ear fullness and decreased hearing over the last 1-2 weeks. Cerumen impaction noted on exam, L ear clear. R EAC flushed with large amount of cerumen removal. Hearing improved post flush. No signs of infection on exam. Primary osteoarthritis of right knee 04/04/2020 Overview (04/04/2020): Added automatically from request for surgery [id number] Assessment & Plan (06/01/2021 9:50 AM SUPERVISOR DIALS): Knee replacement has helped pain and discomfort is considerably. Verrucous keratosis 08/06/2018 Assessment & Plan (08/13/2018 11:40 AM SUPERVISOR DIALS): Posterior neck Bx site healing well, no complications or signs of infection reported or noted on exam Pathology discussed, benign reassurance given Follow up PRN Assessment & Plan (08/06/2018 10:57 AM SUPERVISOR DIALS): Right posterior neck Biopsy/ies done per procedure note. Wound care reviewed with patient. Follow-up per path. Medicare annual wellness visit, subsequent 05/23 Assessment & Plan (06/05/2022 10:28 AM SUPERVISOR DIALS): History and physical completed patient's health risk assessment health maintenance reviewed in addressed. Patient did advised get the updated shingles vaccine. Pneumonia vaccines completed prior to age 65. Assessment & Plan (06/01/2021 9:49 AM SUPERVISOR DIALS): History and physical completed patient's health risk assessment health maintenance reviewed in addressed. Patient pneumococcal vaccines at within the past 5 years. His last colonoscopy was March 2011 will schedule colonoscopy for 2021 COVID vaccines completed including booster. Assessment & Plan (05/30/2020 9:58 AM SUPERVISOR DIALS): History and physical completed patient's health risk assessment health maintenance reviewed in addressed. Lab will include BMP FLP had a PSA.. Patient was scheduled for knee replacement right-sided this is postponed for May still no restrictions on proceeding with his knee replacement. Assessment & Plan (05/25/2019 1:17 PM SUPERVISOR DIALS): Patient's history and physical completed health risk assessment health maintenance all addressed. Patient completed his pneumonia vaccines over year ago shingles vaccines also been completed. Plans at this time check BMP fasting lipid profile. Assessment & Plan (05/24/2018 12:33 PM SUPERVISOR DIALS): Annual exam patient will get a cholesterol, [...] vaccine. Assessment & Plan (05/23/2017 6:28 PM SUPERVISOR DIALS): History and physical completed no abnormalities noted laboratory studies include BMP CBC hepatitis C screening lipid panel PSA. Mallet finger 02/17/2015 Resolved Problems Problem Noted Date Diagnosed Date Resolved Date Cerebral edema 09/05/2022 09/05/2022 Leukocytosis 09/05/2022 09/05/2022 Pre-operative clearance 04/18/202005/11 Assessment & Plan (04/18/2020 12:30 PM SUPERVISOR DIALS): Patient is scheduled for right total knee replacement week of May.. No significant health problems is on no medications his exam today is benign vitals excellent only concern on discomfort is the right knee.. No restriction patient getting knee replacement/surgery riding his preop labs and EKG are within the acceptable range. Encounters Date Type Department Care Team Description 04/30/2025 Telephone [facility] Medicine Stroke [address] [place] [address] Mercedes Holt RMA Scheduling Appointments 04/19/2025 Plan of Care Documentation [facility] Medicine Occupational Therapy [address] [place] [address] 04/15/2025 3:00 PM SUPERVISOR DIALS Therapy [facility] Medicine Occupational Therapy [address] [place] [address] Leighann Powell OT Hemiparesis affecting left side as late effect of cerebrovascular accident (HCC) (Primary Dx) 03/08/2025 12:30 PM CDT Office Visit [facility] Medicine Stroke [address] [place] [id number] Gulshan Ryan MD Hemiparesis affecting left side as late effect of cerebrovascular accident (HCC) (Primary Dx); Pseudobulbar affect from Last 3 Months Immunizations Immunization Administration Dates Next Due Influenza, Quadrivalent, Hig h Dose, Preservative Free, Intrr 03/23/2022,03/03/2021,02/17/2020 Influenza, Trivalent, High D ose, Split, Preservative [...] Comments Hypertension Father mundo Hypertension Mother sanjeev young Hypertension Other Relation Name Status Comments Father mundo Mother sanjeev young Other Social History Tobacco Use Types Packs/Day [...] on file Legal Sex Male 1:24 PM SUPERVISOR DIALS Gender Identity Male 05/29/2021 7:52 PM SUPERVISOR DIALS Sexual Orientation Straight 11/03/2019 9: 44 PM CDT Last Filed Vital Signs Vital Sign Reading Time Taken Comments Blood Pressure 134/85 03/08/2025 12:11 PM CDT Pulse 65 03/08/2025 12:11 PM CDT Temperature 36.8 C (98.2 F) 03/08/2025 12:11 PM CDT Respiratory Rate 16 06/20/2024 12:00 AM SUPERVISOR DIALS Oxygen Saturation 97% 03/08/2025 12:11 PM CDT Inhaled Oxygen Concentration - - Weight 88.5 kg (195 lb) 03/08/2025 12:11 PM CDT per pt Height 182.9 cm (6') 03/08/2025 12:11 PM CDT Body Mass Index 26.45 03/08/2025 12:11 PM CDT Plan of Treatment Health Maintenance Due Date Last Done Comments Hepatitis B Screening 1971 Zoster Vaccine (1 of 2) 2003 Pneumococcal vaccine 65+ (2 of 2 - PCV20 or PCV21) 07/12/2019 07/12/2018, 08/07/2017 Depression Screening 06/05/2023 06/05/2022, 06/01/2021, 05/25/2019 Well Visit 65+ 06/05/2023 06/05/2022, 05/11, 05/30/2020, Additional history exists Fall Risk Assessment 04/05/2024 04/05/2023, 06/05/2022, 06/01/2021, Additional history exists Covid-19 Vaccine (2024-2 6 season) 2025 03/23/2022, 04/25/2021, 08/13/2020, Additional history exists Influenza Vaccine (#1) 2025 , 03/03/2021, 02/17/2020, Additional history exists DTaP/Tdap/Td Vaccine (2 - Td or Tdap) 05/23/2028 05/23/2018 Colon Cancer Screening-Colonoscopy 02/10/2032 02/09/2022, 03/19/2011 Hepatitis C Screening Completed 05/23/2017 Colon Cancer Screening-CT Colonography Discontinued 02/09/2022, 03/19/2011 Colon Cancer Screening-DNA Stool Discontinued 02/10/20 22, 03/19/2011 Colon Cancer Screening-FIT Discontinued 02/09/2022, Colon Cancer Screening-Sigmoidoscopy Discontinued 02/09/2022, 03/19/2011 Prostate Cancer Screening-PSA Discontinued , 05/30/2020, 05/23/2017, Additional history exists Medical Devices Implanted Type Area Wedding Day Coordinator Device Identifier Shelf Expiration Date Model / Serial / Lot [employer] [id number] Attune Cementless Rotate Platform Knee 10 Baseplate Tibial - [id number] Implanted:Qty: 1 on 06/07/2020 by Lester Caro MD at [facility] Right: Knee [employer] 04/09/2029 [id number] / / [id number] [employer] [id number] Attune Cruciate Retain Cementless Knee Right 9 Component Femoral - [id number] Implanted:Qty: 1 on 06/07/2020 by Lester Caro MD at [facility] Right: Knee [employer] 01/08/2028 [id number] / / [id number] [employer] [id number] Attune 7mm Cruciate Retaining Rotate Platform Knee 9 Insert - [id number] Implanted:Qty: 1 on 06/07/2020 by Lester Caro MD at [facility] Right: Knee [employer] 11/07/2024 [id number] / / [id number] [employer] Angio-Seal Vip Bondek-Plus 8fr .038in 70cm Hemostatic Latex Free [id number] - [id number] Implanted:Qty: 1 on 08/25/2022 at [facility] [employer] 04/09/2023 [id number] / / [id number] Procedures Procedure Name Priority Date/Time Associated Diagnosis Comments PSA SCREEN Routine 06/05/2022 9:28 AM SUPERVISOR DIALS Prostate cancer screening COLONOSCOPY 02/09/2022 7:17 AM CDT HEPATITIS C ANTIBODY Routine 05/23/2017 3:05 PM SUPERVISOR DIALS Annual physical exam from Last 3 Months or Most Recently Relevant to Health Maintenance Results * PSA screen (06/05/2022 9:28 AM SUPERVISOR DIALS) PSA-Total 1.08 <=5.40 ng/mL [facility] Comment: Interpretive Data AGE SEX REFERENCE INTERVAL [...] last revised 21. Blood 06/05/2022 9:28 AM SUPERVISOR DIALS 06/05/2022 2:08 PM SUPERVISOR DIALS us Uriel Underwood MD LAB BLOOD ORDERABLES Final Result [facility] [address] Department [place] [address] * COLONOSCOPY (02/09/2022 7:17 AM CDT) Anatomical Region Laterality Modality Other Narrative Procedure Note Gulshan Miranda MD - 02/09/2022 7:17 AM CDT [facility] Patient Name: Sadi Young Procedure Date: 02/09/2022 7:17 AM Date of : 1955 Admit Type: Outpatient Age: 66 Gender: Male Attending MD: Gulshan Miranda M.D. Room: [facility] ENDOSCOPY ROOM 2 Note Status: [...] scope was passed under direct vision.The Colonoscope [id number] was introducedthrough the and advanced to the. The bowel preparation used was Miralax and bisacodyl tablets via extended prep with single dose instruction. The colonoscopy was performed without difficulty. The patient tolerated the procedure well. The quality of the bowel preparation was excellent. The ileocecal valve, appendiceal orifice, and rectum were photographed.The scope was passed under direct vision. The Pediatric Colonoscope [id number] was introducedthrough the anus and advanced to [...] malignant neoplasm of colon Recognized by the [employer] for promoting quality in endoscopy Gulshan Miranda MD ENDOSCOPY PROCEDURES Final Re sult * Hepatitis C antibody (05/23/2017 3:05 PM SUPERVISOR DIALS) Hep C Ab NON-REACTI VE NON-REACTI VE [facility] [place] SIGNAL TO CUT-OFF 0.02 <1.00 [facility] Blood specimen (specimen) 05/23/2017 3:05 PM SUPERVISOR DIALS 05/23/2017 3:06 PM SUPERVISOR DIALS Narrative Resulting Agency Comment Performing Organization Information: Site ID: [id number] Name: [facility] Address: [address] [address] Director: Uriel Littlejohn D.O., MPH Uriel Underwood MD LAB MICROBIOLOGY - GENERAL ORDERABLES Final Result [facility] [place] from Last 3 Months or Most Recently Relevant to Health Maintenance Insurance [facility] MEDICARE COMMERCIAL GENERIC Member Subscriber Plan / Payer (Ef fective 2018-Present) Name:Sadi Young Relation to Subscriber:Self Name:Sadi Young Payer ID:[id number] Group ID:[id number] Type:COMMERCIAL Address: [address] [address] [place], [place] [id number] [place] [address] Member Subscriber Plan / Payer (Ef fective 2022-Present) Name:Sadi Young Relation to Subscriber:Self Name:Sadi Young Payer ID:[id number] Group ID:[id number] Type:COMMERCIAL Address: [address] [address] [place] [address] [facility] OPEN ACCESS MEDICARE MEDICARE GROUP ADMINISTRATORS [place] Member Subscriber Plan / Payer ( fective 2002-Present) Name:Sadi Young Relation to Subscriber:Self Name:Sadi Young Payer ID:[id number] Group ID:[id number] Type:COMMERCIAL Address: [address] [address] [place] [address] MEDICARE GROUP ADMINISTRATORS [place] Member Subscriber Plan / Payer (Ef fective 2021-Present) Name:MarcialSadi peña A Relation to Subscriber:Self Name:Sadi Young Payer ID:[id number] Group ID:[id number] Type:COMMERCIAL Address: [address] [address] [place] [address] Advance Directives For more information, please contact: [phone] * Full Code (Latest Code Status on [...] 7:11 AM 02/09/2022 7:11 AM Care Teams Oracle Fusion Developer Relationship Specialty Start Date End Date Kulwant Mckay MD [address] [facility] [address] [place] [address] PCP - General Family Medicine 01/05/25
== END 2025-04-30 13:48 | disposition home or self-care (01) ==
PROVIDERS: PCP Family Medicine; Visit Provider Otolaryngology
DX: J32.9 Chronic sinusitis, unspecified (principal)
CPT/HCPCS: 70486

== ENCOUNTER 2025-05-28 12:36 | Outpatient (CLI) | payer MEDICARE, OTHER, SELFPAY ==
--- OUTSIDE RECORDS SUMMARY | 2025-05-28 12:40 | XMS_ITS | Encounter Summary ---
Author Organization [facility] Address [address] [place] [address] Phone Care Team Providers Care Fire Hydrant Operator Name Role Phone Kulwant Mckay MD Primary Care Provider Reason for Referral * Consultation (Routine) - Authorized Specialty Diagnoses / Procedures Referred By Contact Referred To Contact Occupational Therapy Diagnoses Hemiparesis affecting left side as late effect of cerebrovascular accident (CVA) ([facility]) Gulshan Ryan MD [address] [place] [address] Phone: tel:[phone] fax:[phone] [facility] Occupational Therapy [address] [place] [address] Phone: tel: fax: Referral ID Status Reason Start Date Expiration Date Visits Requested Visits Authorized [id number] Authorized Evaluate and Treat 05/28/2025 06/27/2026 24 24 Question Answer PTRFR OT Evaluate and Treat Reason for Visit Hemiparesis affecting left side as late effect of cerebrovascular accident Therapy options discussed with patient? Yes Location provided for therapy services is: Patient requested/Patient preferred Please select the performing region: [facility] [[id number]] Please select the performing department: [facility] OP OT [[id number]] # of visits: 24 Comments Left hand splint custom OFFICE ASSISTANT Encounter Details Date Type Department Care Team (Late st Contact Info) Description 05/28/[address] [facility] Medicine Stroke [address] [place] [address] Gulshan Ryan MD [address] [place], [place] [id number] Hemiparesis affecting left side as late effect of cerebrovascular accident (CVA) (HCC) (Primary Dx) Social History Tobacco Use Types Packs/Day Years [...] on file Legal Sex Male 1:24 PM LAW OFFICE ASSISTANT Gender Identity Male 05/29/2021 7:52 PM LAW OFFICE ASSISTANT Sexual Orientation Straight 11/03/2019 9: 44 PM CDT documented as of this encounter Plan of Treatment Scheduled Referrals Name Type Priority Associated Diagnoses Orde r Schedule Ambulatory referral order to Occupational Therapy - Outpatient Referral Routine Hemiparesis affecting left side as late effect of cerebrovascular accident (CVA) (HCC) Expected: 06/11/2025 (Approximate), Expires: 05/28/2026 documented as of this encounter Visit Diagnoses Diagnosis Hemiparesis affecting left side as late effect of cerebrovascular accident (CVA) (HCC)- Primary documented in this encounter Care Teams Fire Hydrant Operator Relationship Specialty Start Date End Date Kulwant Mckay MD [address] [facility] [address] [place] [address] PCP - General Family Medicine 01/05/25 documented as of this encounter
--- OUTSIDE RECORDS SUMMARY | 2025-05-28 12:41 | XMS_ITS | Clinical Summary ---
Author Organization [facility] [address] Address [address] [place] [address] Phone Care Team Providers Care Batch Freezer Name Role Phone Kulwant Mckay MD Primary [...] 06/21/2022 Assessment & Plan (06/21/2022 2:58 PM HAND FOLDER): Ear fullness and decreased hearing over the last 1-2 weeks. Cerumen impaction noted on exam, L ear clear. R EAC flushed with large amount of cerumen removal. Hearing improved post flush. No signs of infection on exam. Primary osteoarthritis of right knee 04/04/2020 Overview (04/04/2020): Added automatically from request for surgery [id number] Assessment & Plan (06/01/2021 9:50 AM HAND FOLDER): Knee replacement has helped pain and discomfort is considerably. Verrucous keratosis 08/06/2018 Assessment & Plan (08/13/2018 11:40 AM HAND FOLDER): Posterior neck Bx site healing well, no complications or signs of infection reported or noted on exam Pathology discussed, benign reassurance given Follow up PRN Assessment & Plan (08/06/2018 10:57 AM HAND FOLDER): Right posterior neck Biopsy/ies done per procedure note. Wound care reviewed with patient. Follow-up per path. Medicare annual wellness visit, subsequent 05/23 Assessment & Plan (06/05/2022 10:28 AM HAND FOLDER): History and physical completed patient's health risk assessment health maintenance reviewed in addressed. Patient did advised get the updated shingles vaccine. Pneumonia vaccines completed prior to age 63. Assessment & Plan (06/01/2021 9:49 AM HAND FOLDER): History and physical completed patient's health risk assessment health maintenance reviewed in addressed. Patient pneumococcal vaccines at within the past 5 years. His last colonoscopy was March 2011 will schedule colonoscopy for 2021 COVID vaccines completed including booster. Assessment & Plan (05/30/2020 9:58 AM HAND FOLDER): History and physical completed patient's health risk assessment health maintenance reviewed in addressed. Lab will include BMP FLP had a PSA.. Patient was scheduled for knee replacement right-sided this is postponed for May still no restrictions on proceeding with his knee replacement. Assessment & Plan (05/25/2019 1:17 PM HAND FOLDER): Patient's history and physical completed health risk assessment health maintenance all addressed. Patient completed his pneumonia vaccines over year ago shingles vaccines also been completed. Plans at this time check BMP fasting lipid profile. Assessment & Plan (05/24/2018 12:33 PM HAND FOLDER): Annual exam patient will get a cholesterol, [...] vaccine. Assessment & Plan (05/23/2017 6:28 PM HAND FOLDER): History and physical completed no abnormalities noted laboratory studies include BMP CBC hepatitis C screening lipid panel PSA. Mallet finger 02/17/2015 Resolved Problems Problem Noted Date Diagnosed Date Resolved Date Cerebral edema 09/05/2022 09/05/2022 Leukocytosis 09/05/2022 09/05/2022 Pre-operative clearance 04/18/202005/11 Assessment & Plan (04/18/2020 12:30 PM HAND FOLDER): Patient is scheduled for right total knee replacement week of May.. No significant health problems is on no medications his exam today is benign vitals excellent only concern on discomfort is the right knee.. No restriction patient getting knee replacement/surgery riding his preop labs and EKG are within the acceptable range. Encounters Date Type Department Care Team Description 05/28/2025 Orders Only [facility] Medicine Stroke [address] [facility] [address] [place] [phone] Gulshan Ryan MD Hemiparesis affecting left side as late effect of cerebrovascular accident (CVA) (HCC) (Primary Dx) 05/24/2025 Telephone [facility] Medicine Stroke [address] [facility] [address] [place] [phone] Mercedes Holt RMA 04/30/2025 Telephone [facility] Medicine Stroke [address] [facility] [address] [place] [phone] Mercedes Holt RMA Scheduling Appointments 04/19/2025 Plan of Care Documentation [facility] Medicine Occupational Therapy [address] [phone] 04/15/2025 3:00 PM HAND FOLDER [facility] Occupational Therapy [address] [place] [address] Leighann Powell OT Hemiparesis affecting left side as late effect of cerebrovascular accident (HCC) (Primary Dx) 03/08/2025 12:30 PM CDT Office Visit [facility] Medicine Stroke [address] [facility] [address] [place] [address] Gulshan Ryan MD Hemiparesis affecting left side [...] 04/09/2011 KNEE ARTHROSCOPY W/ LATERAL RELEASE 2003, 2005 FRACTURE SURGERY 1973 PERCUTANEOUS THROMBECTOMY ARTERIAL RIGHT [...] on file Legal Sex Male 1:24 PM HAND FOLDER Gender Identity Male 05/29/2021 7:52 PM HAND FOLDER Sexual Orientation Straight 11/03/2019 9: 44 PM CDT Last Filed Vital Signs Vital Sign Reading Time Taken Comments Blood Pressure 134/85 03/08/2025 12:11 PM CDT Pulse 65 03/08/2025 12:11 PM CDT Temperature 36.8 C (98.2 F) 03/08/2025 12:11 PM CDT Respiratory Rate 16 06/20/2024 12:00 AM HAND FOLDER Oxygen Saturation 97% 03/08/2025 12:11 PM CDT [...] 06/05/2022, 06/01/2021, Additional history exists Covid-19 Vaccine (5 - 2024- 6 season) 2025 03/23/2022, 04/25/2021, 08/13/2020, Additional [...] history exists Medical Devices Implanted Type Area Marine Equipment Design Engineer Device Identifier Shelf Expiration Date Model / Serial / Lot [employer] [id number] Attune Cementless Rotate Platform Knee 10 Baseplate Tibial - [id number] Implanted:Qty: 1 on 06/07/2020 by Lester Caro MD at [facility] Right: Knee [employer] 04/09/2029 [id number] / / [id number] [employer] [id number] Attune Cruciate Retain Cementless Knee Right 9 Component Femoral - [id number] Implanted:Qty: 1 on 06/07/2020 by Lester Caro MD at [facility] Right: Knee [employer] 01/08/2028 [id number] / / [id number] [employer] [id number] Attune 7mm Cruciate Retaining Rotate Platform Knee 9 Insert - [id number] Implanted:Qty: 1 on 06/07/2020 by Lester Caro MD at [facility] Right: Knee [employer] 11/07/2024 [id number] / / [id number] [employer] Angio-Seal Vip Bondek-Plus 8fr .038in 70cm Hemostatic Latex Free [id number] - [id number] Implanted:Qty: 1 on 08/25/[address] [facility] [employer] 04/09/2023 [id number] / / [id number] Procedures Procedure Name Priority Date/Time Associated Diagnosis Comments PSA SCREEN Routine 06/05/2022 9:28 AM HAND FOLDER Prostate cancer screening COLONOSCOPY 02/09/2022 7:17 AM CDT HEPATITIS C ANTIBODY Routine 05/23/2017 3:05 PM HAND FOLDER Annual physical exam from Last 3 Months or Most Recently Relevant to Health Maintenance Results * PSA screen (06/05/2022 9:28 AM HAND FOLDER) PSA-Total 1.08 <=5.40 ng/mL [facility]ST[facility] Comment: [...] last revised 21. Blood 06/05/2022 9:28 AM HAND FOLDER 06/05/2022 2:08 PM HAND FOLDER us Uriel Underwood MD LAB BLOOD ORDERABLES Final Result [facility] CASTANEDA [address] Department [place] [address] * COLONOSCOPY (02/09/2022 7:17 AM CDT) Anatomical Region Laterality Modality Other Narrative Procedure Note Gulshan Miranda MD - 02/09/2022 7:17 AM CDT [facility] Patient Name: Sadi Young Procedure Date: 02/09/2022 7:17 AM Date of : 1955 Admit Type: Outpatient Age: 66 Gender: Male Attending MD: Gulshan Miranda M.D. [facility] 2 Note Status: Finalized [...] scope was passed under direct vision.The Colonoscope CF-TI021H [id number] was introducedthrough the and advanced to the. The bowel preparation used was Miralax and bisacodyl tablets via extended prep with single dose instruction. The colonoscopy was performed without difficulty. The patient tolerated the procedure well. The quality of the bowel preparation was excellent. The ileocecal valve, appendiceal orifice, and rectum were photographed.The scope was passed under direct vision. The Pediatric Colonoscope PCF-H190L [id number] was introducedthrough the anus and advanced to [...] malignant neoplasm of colon Recognized by the [employer] for promoting quality in endoscopy Gulshan Miranda MD ENDOSCOPY PROCEDURES Final Re sult * Hepatitis C antibody (05/23/2017 3:05 PM HAND FOLDER) Hep C Ab NON-REACTI VE NON-REACTI VE [facility] SIGNAL TO CUT-OFF 0.02 <1.00 [facility] Kathrin GARCIA Blood specimen (specimen) 05/23/2017 3:05 PM HAND FOLDER 05/23/2017 3:06 PM HAND FOLDER Narrative Resulting Agency Comment Performing Organization Information: Site ID: [facility] Name: [email or web address] Address: [address] [address] Director: Uriel Littlejohn D.O., MPH us Uriel Underwood MD LAB MICROBIOLOGY - GENERAL ORDERABLES Final Result [facility] [place] from Last 3 Months or Most Recently Relevant to Health Maintenance Insurance [facility]LY [facility] MEDICARE COMMERCIAL GENERIC Member Subscriber Plan / Payer (Ef fective 2018-Present) Name:Sadi Young Relation to Subscriber:Self Name:Sadi Young Payer ID:[id number] Group ID:[id number] Type:COMMERCIAL Address: [address] [address] [place] [address] [employer] [place] Member Subscriber Plan / Payer ( fective 2022-Present) Name:Sadi Young Relation to Subscriber:Self Name:Sadi Young Payer ID:[id number] Group ID:[id number] Type:COMMERCIAL Address: [address] [address] [place] [address] [facility] ACCESS MEDICARE MEDICARE [employer] [place] Member Subscriber Plan / Payer ( fective 2002-Present) Name:Sadi Young Relation to Subscriber:Self Name:Sadi Young Payer ID:[id number] Group ID:[id number] Type:[employer] Address: [address] [address] [place] [address] MEDICARE [employer] [place] Member Subscriber Plan / Payer ( fective 2021-Present) Name:Sadi Young Relation to Subscriber:Self Name:Sadi Young Payer ID:[id number] Group ID:[id number] Type:COMMERCIAL Address: [address] [address] [place] [address] Advance Directives For more information, please contact: [phone] * Full Code (Latest Code Status on [...] 7:11 AM 02/09/2022 7:11 AM Care Teams Batch Freezer Relationship Specialty Start Date End Date Kulwant Mckay MD [address] [facility] [address] [place] [address] PCP - General Family Medicine 01/05/25
[2025-05-28 13:19] LABS: Hematocrit 49.1 % (42.0-52.0); Hemoglobin 15.5 g/dL (14.0-18.0); Immature Granulocyte Percent A 0.5 % (0-0.5); Lymphocytes Absolute Auto 1.55 K/mm3 (0.9-3.2); Mean Corpuscular HGB Conc 31.6 g/dl (32-36); Mean Corpuscular Hemoglobin 28.9 pg (26-34); Mean Corpuscular Volume 91.4 fl (80-100); Nucleated Red Blood Cells Absolute Auto 0.000 K/mm3 (0.0-0.012); Nucleated Red Blood Cells Perc 0.0 % (0.0-0.2); Platelet Count Result 279 k/mm3 (150-375); Red Blood Count 5.37 M/mm3 (4.6-6.20); White Blood Count 8.6 K/mm3 (4.5-10.0)
[2025-05-28 13:45] LABS: Alanine Aminotransferase 49 U/L (6-50); Albumin Level 4.3 g/dL (3.5-5.1); Alkaline Phosphatase 115 U/L (38-126); Anion Gap 7 mmol/L (4-12); Aspartate Amino Transferase 42 U/L (17-59); Bilirubin,Total 0.9 mg/dL (0.2-1.3); Blood Urea Nitrogen 21 mg/dL (9-20); Calcium 10.2 mg/dL (8.4-10.2); Carbon Dioxide 30 mmol/L (22-30); Chloride 104 mmol/L (98-107); Estimated Glomerular Filt Rate 59; Glucose 144 mg/dL (65-110); Potassium 4.2 mmol/L (3.4-5.0); Sodium 141 mmol/L (137-145); Total Protein 7.7 g/dL (6.3-8.2)
[2025-05-28 14:18] LABS: Thyroid Stimulating Hormone 1.210 uIU/mL (0.465-4.680)
== END 2025-05-28 12:37 | disposition home or self-care (01) ==
PROVIDERS: PCP Family Medicine; Visit Provider Student in an Organized Health Care Education/Training Program
DX: R44.3 Hallucinations, unspecified (principal); E03.9 Hypothyroidism, unspecified
CPT/HCPCS: 36415; 80053; 84443; 85025